=== PATIENT | male | born 1955 | race Two or more races ===

== ENCOUNTER 2016-08-16 12:40 | Inpatient (IN) | payer MEDICARE, OTHER ==
[~2016-08-16] VITALS: Ht 185.4 cm; Wt 99.3 kg
[2016-08-16] VITALS (17 sets, daily range): BP systolic 77–126; BP diastolic 41–73
[2016-08-16] MEDS ORDERED: Glucagon 1mg Inj IV ONE (13:30)
[2016-08-16 13:40] LABS: BASOPHILS % (AUTO) 0.6 % (0.0-2.0); EOSINOPHILS % (AUTO) 1.2 % (0.0-3.0); MEAN CORPUSCULAR HEMOGLOBIN 31.8 PG (27.0-31.0); MEAN CORPUSCULAR HGB CONC 33.2 G/DL (32.0-36.0); MEAN CORPUSCULAR VOLUME 96 FL (80-99); MEAN PLATELET VOLUME 7.4 FL (6.5-10.1); MONOCYTES % (AUTO) 5.6 % (1.0-10.0); NEUTROPHILS % (AUTO) 72.5 % (45.0-75.0); PLATELET COUNT 199 K/UL (150-450); RED BLOOD COUNT 3.37 M/UL (4.70-6.10); RED CELL DISTRIBUTION WIDTH 14.1 % (11.6-14.8); WHITE BLOOD COUNT 9.9 K/UL (4.8-10.8)
[2016-08-16 13:53] LABS: TROPONIN I < 0.30 ng/mL (<=0.30)
[2016-08-16 13:54] LABS: ALBUMIN/GLOBULIN RATIO 1.1 (1.0-2.7); CALCIUM 9.3 mg/dL (8.6-10.2); CREATININE 6.3 mg/dL (0.7-1.2); GLOMERULAR FILTRATION RATE 9.1 mL/min (>60); POTASSIUM 4.6 mEQ/L (3.4-4.9); TOTAL PROTEIN 6.8 g/dL (6.6-8.7)
[2016-08-16 13:59] LABS: INR 0.9 (0.9-1.1); PROTHROMBIN TIME 9.6 SEC (9.30-11.50)
[2016-08-16 14:05] LABS: CKMB 2.8 ng/mL (< 6.7)
[2016-08-16] MEDS ORDERED: Heparin 2000 units/Ns 1000ml IV ONE (14:15)
[2016-08-16] MEDS ORDERED: Lidocaine 1% Plain 30 ml INJ ONE (14:15)
[2016-08-16] MEDS ORDERED: DuoNeb 0.5-3(2.5)mg/3ml neb HHN PRN (14:30)
[2016-08-16] MEDS ORDERED: Nitroglycerin Subl 0.4mg tab (Bottle Of 25) SL PRN (14:30)
[2016-08-16] MEDS ORDERED: Miralax 17gm pkt ORAL PRN (14:30)
[2016-08-16] MEDS: DOPamine 400mg/250ml 250 ML IV SCH (14:55)
--- NOTE | 2016-08-16 15:40 | Emergency Room Report ---
History of Present Illness General Chief Complaint: General Complaint Source: Medical Record Present Illness HPI Patient is a 61-year-old male brought in by ambulance after increased dizziness lightheadedness. Patient had been seen at his oncologist office Dr. Oliver. Patient was noted to have markedly hypotension. He had not taken his blood pressure medication since yesterday. The medications include metoprolol hydrochlorothiazide,Patient was noted to have been given a liter of IV fluid by prior to arrival. The patient was given additional IV fluids by paramedics the continued hypotension. The patient had prior history of prostate disease and prostate cancer which was widely metastatic and had been doing well with current therapy. Allergies: Coded Allergies: No Known Allergies (Unverified , 08/16/16) Patient History Reviewed Nursing Documentation: PMH: Agreed, PSxH: Agreed Nursing Documentation-PMH Past Medical History: No History, Except For Hx Hypertension: Yes Hx Cancer: Yes - prostate Hx Gastrointestinal Problems: Yes - GERD History Of Psychiatric Problem: Yes - anxiety depression Review of Systems All Other Systems: negative except mentioned in HPI Physical Exam Vital Signs Date Time Temp Pulse Resp B/P Pulse Ox O2 Delivery O2 Flow Rate FiO2 08/16/16 12:42 97.2 55 14 79/49 100 Room Air Sp02 EP Interpretation: reviewed, normal General Appearance: normal inspection, alert, GCS 15, Chronically Ill Head: atraumatic ENT: normal ENT inspection, hearing grossly normal, normal voice Neck: normal inspection, full range of motion, supple, no bony tend Respiratory: normal inspection, lungs clear, normal breath sounds, no respiratory distress, no retraction, no wheezing Cardiovascular #1: regular rate, rhythm, no edema Gastrointestinal: normal inspection, normal bowel sounds, non tender, soft, no guarding, no hernia Genitourinary: no CVA tenderness Musculoskeletal: normal inspection, back normal, normal range of motion Neurologic: normal inspection, alert, oriented x3, responsive, mononitrotoluene operator III-XII nml as tested, speech normal Psychiatric: normal inspection, judgement/insight normal, mood/affect normal Skin: normal inspection, normal color, no rash Procedures Critical Care Time Critical Care Time Patient had a critical medical condition which untreated could potentially result in life or limb threatening injury. Total critical care time excluding procedures approximately 45 minutes. Medical Decision Making Diagnostic Impression: Primary Impression: Hypotension arterial Additional Impressions: Acute renal disease Prostate cancer metastatic to bone ER Course Patient presented for hypotension. Differential diagnosis included wasn't limited to septic shock pericardial effusion, pulmonary embolism, medication overdose, anaphylactic reaction. Because of complexity of patient's case laboratory testing and imaging studies were ordered.EKG interpreted by me showed normal sinus rhythm with a rate of 63 with prolonged QT QTC was [address] depression noted . The patient started on IV fluids as well as IV dopamine. I laboratory testing was notable for elevation of BUN/ creatinine consistent with acute renal failure. Patient states he's been urinating normallyDr. Tod Golden was contacted and requested the patient be admitted to Dr. Benson. A PICC line was placed by radiology for pressor management. Labs Test 08/16/16 13:00 White Blood Count 9.9 K/UL (4.8-10.8) Red Blood Count 3.37 M/UL (4.70-6.10) Hemoglobin 10.7 G/DL (14.2-18.0) Hematocrit 32.3 % (42.0-52.0) Mean Corpuscular Volume 96 FL (80-99) Mean Corpuscular Hemoglobin 31.8 PG (27.0-31.0) Mean Corpuscular Hemoglobin Concent 33.2 G/DL (32.0-36.0) Red Cell Distribution Width 14.1 % (11.6-14.8) Platelet Count 199 K/UL (150-450) Mean Platelet Volume 7.4 FL (6.5-10.1) Neutrophils (%) (Auto) 72.5 % (45.0-75.0) Lymphocytes (%) (Auto) 20.0 % (20.0-45.0) Monocytes (%) (Auto) 5.6 % (1.0-10.0) Eosinophils (%) (Auto) 1.2 % (0.0-3.0) Basophils (%) (Auto) 0.6 % (0.0-2.0) Prothrombin Time 9.6 SEC (9.30-11.50) Prothromb Time International Ratio 0.9 (0.9-1.1) Activated Partial Thromboplast Time 27 SEC (23-33) Sodium Level 132 mEQ/L (135-145) Potassium Level 4.6 mEQ/L (3.4-4.9) Chloride Level 89 mEQ/L (98-107) Carbon Dioxide Level 21 mEQ/L (20-30) Anion Gap 22 (5-15) Blood Urea Nitrogen 58 mg/dL (7-23) Creatinine 6.3 mg/dL (0.7-1.2) Estimat Glomerular Filtration Rate 9.1 mL/min (>60) Glucose Level 78 mg/dL (74-106) Lactic Acid Level 1.40 mmol/L (0.66-2.22) Calcium Level 9.3 mg/dL (8.6-10.2) Total Bilirubin 0.4 mg/dL (0.0-1.2) Aspartate Amino Transf (AST/SGOT) 16 U/L (5-40) Alanine Aminotransferase (ALT/SGPT) 5 U/L (3-41) Alkaline Phosphatase 216 U/L (40-129) Total Creatine Kinase 57 U/L (38-174) Creatine Kinase MB 2.8 ng/mL (< 6.7) Creatine Kinase MB Relative Index 4.9 Troponin I < 0.30 ng/mL (<=0.30) Pro-B-Type Natriuretic Peptide 1849 pg/mL (0-125) Total Protein 6.8 g/dL (6.6-8.7) Albumin 3.6 g/dL (3.5-5.2) Globulin 3.2 g/dL Albumin/Globulin Ratio 1.1 (1.0-2.7) Chest X-Ray Diagnostic Results EP Interpretation: No Findings: no effusion, no pneumothorax, no acute cardiopulmonary disease, other - 1st rib lesion Number of Views: 1 Last Vital Signs Date Time Temp Pulse Resp B/P Pulse Ox O2 Delivery O2 Flow Rate FiO2 08/16/16 14:57 97.2 68 18 83/59 100 Room Air Status: unchanged Disposition: ADMITTED INPATIENT Condition: Critical Referrals: KAREEN OLIVER (PCP) Jesu Wilcox Aug 16, 2016 15:40
[2016-08-16 15:47] LABS: APPEARANCE,URINE CLEAR; KETONES,URINE NEGATIVE (NEGATIVE); LEUKOCYTE ESTERASE ,URINE NEGATIVE (NEGATIVE); NITRITE,URINE NEGATIVE (NEGATIVE); PH,URINE 5 (4.5-8.0); PROTEIN,URINE 2+ (NEGATIVE); UROBILINOGEN,URINE NORMAL MG/DL (0.0-1.0)
[2016-08-16 15:56] LABS: SQUAMOUS EPITHELIAL CELL,UR FEW /LPF (NONE/OCC); WBC,URINE 0-2 /HPF (0 - 0)
[2016-08-16 15:57] LABS: BACTERIA,URINE FEW /HPF
--- NOTE | 2016-08-16 16:30 | Diagnostic Imaging Report ---
Indication: Chest pain Technique: One view of the chest Comparison: None Findings: There is any unusual expansile sclerotic lesion of the right first rib, expanding the bone to approximately twice its normal width. There is questionably some sclerosis of the right second rib, as well. The lungs and pleural spaces are clear. Heart size is normal. Impression: Expansile lesion of the right first rib with sclerosis. Equivocal slight sclerosis of the right second rib as well. Correlate with clinical history and any prior radiographs that may be available to help determine whether this is an old or an acute process. If not previously worked up, consider bone scan for further evaluation to determine if metabolically active. No acute cardiopulmonary process
[2016-08-16] MEDS ORDERED: PROCHLORPERAZINE5 MG ORAL (16:33)
[2016-08-16] MEDS ORDERED: OMEPRAZOLE40 M1 ORAL (16:33)
[2016-08-16] MEDS ORDERED: SERTRALINE HCL25 MG ORAL (16:33)
[2016-08-16] MEDS ORDERED: HYDROMORPHO2 MG/1 M3 IJ (16:33)
[2016-08-16] MEDS ORDERED: ZOFRAN4 M3 ORAL (16:33)
[2016-08-16] MEDS ORDERED: METOPROLOL TAR100 M1 ORAL (16:33)
[2016-08-16] MEDS ORDERED: LISINOPRIL20 MG ORAL (16:33)
[2016-08-16] MEDS ORDERED: LOSARTAN POTASS25 MG ORAL (16:33)
[2016-08-16] MEDS ORDERED: LORAZEPAM2 MG ORAL (16:33)
[2016-08-16] MEDS ORDERED: HYDROCHLOROTHIA25 MG ORAL (16:33)
[2016-08-16] MEDS ORDERED: ZOLPIDEM TARTRA10 MG ORAL (16:33)
[2016-08-16] MEDS: D5 1/2NS 1,000 ML IV SCH ×2 (18:41→18:48)
[2016-08-16] MEDS: Morphine Sulfate 4mg/ml Inj IVP PRN (18:56)
[2016-08-16] MEDS: LORazepam Inj 2mg/ml 1ml IV PRN (19:55)
[2016-08-16] MEDS: Heparin 5000 units/ml inj SUBQ SCH (21:48)
[2016-08-17] VITALS (83 sets, daily range): BP systolic 57–129; BP diastolic 40–83
[2016-08-17] MEDS: DOPamine 400mg/250ml 250 ML IV SCH ×2 (05:15→20:30)
[2016-08-17 06:14] LABS: BASOPHILS % (AUTO) 0.6 % (0.0-2.0); EOSINOPHILS % (AUTO) 0.9 % (0.0-3.0); LYMPHOCYTES % (AUTO) 26.2 % (20.0-45.0); MEAN CORPUSCULAR HEMOGLOBIN 32.6 PG (27.0-31.0); MEAN CORPUSCULAR HGB CONC 34.1 G/DL (32.0-36.0); MEAN CORPUSCULAR VOLUME 96 FL (80-99); MEAN PLATELET VOLUME 7.2 FL (6.5-10.1); MONOCYTES % (AUTO) 4.9 % (1.0-10.0); NEUTROPHILS % (AUTO) 67.5 % (45.0-75.0); PLATELET COUNT 221 K/UL (150-450); RED BLOOD COUNT 3.29 M/UL (4.70-6.10); RED CELL DISTRIBUTION WIDTH 13.6 % (11.6-14.8); WHITE BLOOD COUNT 8.9 K/UL (4.8-10.8)
[2016-08-17 06:28] LABS: BILIRUBIN,DIRECT 0.1 mg/dL (0.1-0.3); PHOSPHORUS 6.8 mg/dL (2.5-4.8); TOTAL PROTEIN 6.6 g/dL (6.6-8.7)
[2016-08-17 06:37] LABS: PROTHROMBIN TIME 9.7 SEC (9.30-11.50)
[2016-08-17 07:40] LABS: CALCIUM 8.9 mg/dL (8.6-10.2); CREATININE 4.9 mg/dL (0.7-1.2); GLOMERULAR FILTRATION RATE 12.2 mL/min (>60); POTASSIUM 3.3 mEQ/L (3.4-4.9)
--- NOTE | 2016-08-17 07:59 | History and Physical ---
History of Present Illness General Date patient seen: Aug 17, 2016 Time patient seen: 07:45 Reason for Hospitalization: General Complaint Present Illness HPI 61-year-old male with history of prostate Ca, was brought in by ambulance after increased dizziness and lightheadedness. Patient had been seen at his oncologist office Dr. Oliver. Patient was noted to have significant hypotension. He had not taken his blood pressure medication x 1 day Patient was given a liter of IV fluid by prior to arrival. The patient was given additional IV fluids by paramedics Hypotension persisted ED workup revealed acute renal failure, creat up to 6.3 mild anemia no leukocytosis, no fever CXR with evidence of lytic lesion Ist R rib patient required to be started on pressors and transferred to ICU for further management Allergies: Coded Allergies: No Known Allergies (Unverified , 08/16/16) Medication History Scheduled Hydrochlorothiazide* (Hydrochlorothiazide*), 25 MG ORAL DAILY, (Reported) Lisinopril (Lisinopril*), 20 MG ORAL DAILY, (Reported) Lorazepam* (Lorazepam*), 2 MG ORAL THREE TIMES A DAY, (Reported) Losartan Potassium* (Losartan Potassium*), 25 MG ORAL DAILY, (Reported) Metoprolol Tartrate* (Metoprolol Tartrate*), 100 MG ORAL EVERY 12 HOURS, ( Reported) Omeprazole (Omeprazole), 40 MG ORAL DAILY, (Reported) Prochlorperazine Maleate* (Compazine*), 10 MG ORAL Q6H, (Reported) Sertraline Hcl* (Sertraline Hcl*), 25 MG ORAL DAILY, (Reported) Scheduled PRN Ondansetron* (Zofran*), 4 MG ORAL Q6H PRN for Nausea & Vomiting, (Reported) Zolpidem Tartrate* (Zolpidem Tartrate*), 10 MG ORAL BEDTIME PRN for Insomnia, ( Reported) Miscellaneous Medications Hydromorphone Hcl (Hydromorphone Hcl), 2 MG IJ, (Reported) Patient History History Provided By: Patient Healthcare decision maker N Resuscitation status Full Code Advanced Directive on File Past Medical/Surgical History Past Medical/Surgical History: (1) Prostate cancer metastatic to bone (2) Afib (3) GERD (gastroesophageal reflux disease) (4) HTN (hypertension) (5) COPD (chronic obstructive pulmonary disease) (6) History of CVA (cerebrovascular accident) Review of Systems Constitutional: Reports: weakness Eye: Reports: no symptoms ENT: Reports: no symptoms Respiratory: Reports: other - COPD Cardiovascular: Reports: other - HTN, PAF Gastrointestinal: Reports: no symptoms Genitourinary: Reports: see HPI Musculoskeletal: Reports: other - Left side weakness Skin: Reports: no symptoms Psychiatric: Reports: anxiety, depressed feelings Neurological: Reports: other - 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 Endocrine: Reports: no symptoms Hematologic/Lymphatic: Reports: no symptoms Physical Exam General Appearance: WD/WN, alert Lines, tubes and drains: PICC HEENT: normocephalic, atraumatic, anicteric, mucous membranes moist, PERRL Neck: non-tender, supple Respiratory/Chest: lungs clear, no respiratory distress, no accessory muscle use Cardiovascular/Chest: normal peripheral pulses, normal rate, regular rhythm Abdomen: normal bowel sounds, non tender, soft Extremities: normal range of motion, non-tender, no calf tenderness Skin Exam: warm/dry Neurologic: alert, oriented x 3, responsive, other - L side weakness Musculoskeletal: normal muscle bulk Last 24 Hour Vital Signs Date Time Temp Pulse Resp B/P Pulse Ox O2 Delivery O2 Flow Rate FiO2 08/17/16 07:00 69 12 117/70 100 Room Air 08/17/16 06:45 69 13 113/73 98 Room Air 08/17/16 06:30 76 13 114/71 100 Room Air 08/17/16 06:15 73 13 110/67 100 Room Air 08/17/16 06:00 57 13 110/63 96 Room Air 08/17/16 05:45 59 12 104/60 96 Room Air 08/17/16 05:30 55 12 100/61 100 Room Air 08/17/16 05:15 53 13 86/52 99 Room Air 08/17/16 05:15 64/41 08/17/16 05:00 63 13 62/40 100 Room Air 08/17/16 04:45 61 13 103/61 99 Room Air 08/17/16 04:30 64 12 78/47 100 Room Air 08/17/16 04:15 61 12 104/63 99 Room Air 08/17/16 04:00 97.6 61 12 107/69 99 Room Air 08/17/16 04:00 73 08/17/16 03:45 64 14 112/69 100 Room Air 08/17/16 03:30 69 18 113/67 99 Room Air 08/17/16 03:15 71 17 109/63 98 Room Air 08/17/16 03:00 66 17 112/67 95 Room Air 08/17/16 02:45 62 13 106/65 98 Room Air 08/17/16 02:30 57 13 89/57 98 Room Air 08/17/16 02:15 59 14 88/76 97 Room Air 08/17/16 02:00 60 13 92/56 95 Room Air 08/17/16 01:00 65 13 92/67 95 Room Air 08/17/16 00:00 98.1 68 15 99/61 96 Room Air 08/17/16 00:00 69 08/16/16 23:45 65 13 92/67 95 Room Air 08/16/16 23:30 65 14 92/67 98 Room Air 08/16/16 23:15 67 14 94/59 96 Room Air 08/16/16 23:00 66 14 94/59 96 Room Air 08/16/16 23:00 94/59 08/16/16 22:00 96/63 08/16/16 22:00 73 17 96/63 95 Room Air 08/16/16 21:00 71 15 102/65 95 Room Air 08/16/16 21:00 102/65 08/16/16 20:00 97.6 75 15 116/64 94 Room Air 08/16/16 20:00 116/64 08/16/16 19:00 117/69 08/16/16 19:00 71 21 117/69 100 Room Air 08/16/16 18:00 70 23 112/68 100 Room Air 08/16/16 18:00 112/68 08/16/16 17:24 97.1 91 23 116/59 100 Room Air 08/16/16 17:15 87 08/16/16 17:02 97.8 91 16 121/73 100 Room Air 08/16/16 17:01 97.8 91 16 121/73 100 Room Air 08/16/16 17:00 116/59 08/16/16 16:30 97.2 80 20 123/63 100 Room Air 08/16/16 16:29 123/63 08/16/16 15:33 126/68 08/16/16 15:31 97.6 63 16 126/68 100 Room Air 08/16/16 14:57 97.2 68 18 83/59 100 Room Air 08/16/16 14:55 68/44 08/16/16 14:30 97.2 68 18 80/53 100 Room Air 08/16/16 13:32 68 18 87/48 100 Room Air 08/16/16 13:13 97.2 57 18 77/41 100 Room Air 08/16/16 12:42 97.2 55 14 79/49 100 Room Air Intake and Output 08/16/16 08/17/16 19:00 07:00 Intake Total 1055.95 ml 1121.608 ml Output Total 700 ml 1165 ml Balance 355.95 ml -43.392 ml Intake IV Total 55.95 ml 1121.608 ml Other 1000 ml Output Urine Total 700 ml 1165 ml # Voids 1 Laboratory Tests Test 08/16/16 13:00 08/16/16 15:35 08/17/16 04:40 White Blood Count 9.9 K/UL (4.8-10.8) 8.9 K/UL (4.8-10.8) Red Blood Count 3.37 M/UL (4.70-6.10) L 3.29 M/UL (4.70-6.10) L Hemoglobin 10.7 G/DL (14.2-18.0) L 10.7 G/DL (14.2-18.0) L Hematocrit 32.3 % (42.0-52.0) L 31.5 % (42.0-52.0) L Mean Corpuscular Volume 96 FL (80-99) 96 FL (80-99) Mean Corpuscular Hemoglobin 31.8 PG (27.0-31.0) H 32.6 PG (27.0-31.0) H Mean Corpuscular Hemoglobin Concent 33.2 G/DL (32.0-36.0) 34.1 G/DL (32.0-36.0) Red Cell Distribution Width 14.1 % (11.6-14.8) 13.6 % (11.6-14.8) Platelet Count 199 K/UL (150-450) 221 K/UL (150-450) Mean Platelet Volume 7.4 FL (6.5-10.1) 7.2 FL (6.5-10.1) Neutrophils (%) (Auto) 72.5 % (45.0-75.0) 67.5 % (45.0-75.0) Lymphocytes (%) (Auto) 20.0 % (20.0-45.0) 26.2 % (20.0-45.0) Monocytes (%) (Auto) 5.6 % (1.0-10.0) 4.9 % (1.0-10.0) Eosinophils (%) (Auto) 1.2 % (0.0-3.0) 0.9 % (0.0-3.0) Basophils (%) (Auto) 0.6 % (0.0-2.0) 0.6 % (0.0-2.0) Prothrombin Time 9.6 SEC (9.30-11.50) 9.7 SEC (9.30-11.50) Prothromb Time International Ratio 0.9 (0.9-1.1) 1.0 (0.9-1.1) Activated Partial Thromboplast Time 27 SEC (23-33) 33 SEC (23-33) Sodium Level 132 mEQ/L (135-145) L 136 mEQ/L (135-145) Potassium Level 4.6 mEQ/L (3.4-4.9) 3.3 mEQ/L (3.4-4.9) L Chloride Level 89 mEQ/L (98-107) L 93 mEQ/L (98-107) L Carbon Dioxide Level 21 mEQ/L (20-30) 20 mEQ/L (20-30) Anion Gap 22 (5-15) H 23 (5-15) H Blood Urea Nitrogen 58 mg/dL (7-23) H 52 mg/dL (7-23) H Creatinine 6.3 mg/dL (0.7-1.2) H 4.9 mg/dL (0.7-1.2) H Estimat Glomerular Filtration Rate 9.1 mL/min (>60) 12.2 mL/min (>60) Glucose Level 78 mg/dL (74-106) 99 mg/dL (74-106) Lactic Acid Level 1.40 mmol/L (0.66-2.22) Calcium Level 9.3 mg/dL (8.6-10.2) 8.9 mg/dL (8.6-10.2) Total Bilirubin 0.4 mg/dL (0.0-1.2) 0.3 mg/dL (0.0-1.2) Aspartate Amino Transf (AST/SGOT) 16 U/L (5-40) 10 U/L (5-40) Alanine Aminotransferase (ALT/SGPT) 5 U/L (3-41) 5 U/L (3-41) Alkaline Phosphatase 216 U/L (40-129) H 217 U/L (40-129) H Total Creatine Kinase 57 U/L (38-174) Creatine Kinase MB 2.8 ng/mL (< 6.7) Creatine Kinase MB Relative Index 4.9 Troponin I < 0.30 ng/mL (<=0.30) Pro-B-Type Natriuretic Peptide 1849 pg/mL (0-125) H Total Protein 6.8 g/dL (6.6-8.7) 6.6 g/dL (6.6-8.7) Albumin 3.6 g/dL (3.5-5.2) 3.5 g/dL (3.5-5.2) Globulin 3.2 g/dL Albumin/Globulin Ratio 1.1 (1.0-2.7) Urine Color Pale yellow Urine Appearance Clear Urine pH 5 (4.5-8.0) Urine Specific [place] 1.010 (1.005-1.035) Urine Protein 2+ (NEGATIVE) H Urine Glucose (UA) Negative (NEGATIVE) Urine Ketones Negative (NEGATIVE) Urine Occult Blood 1+ (NEGATIVE) H Urine Nitrite Negative (NEGATIVE) Urine Bilirubin Negative (NEGATIVE) Urine Urobilinogen Normal MG/DL (0.0-1.0) Urine Leukocyte Esterase Negative (NEGATIVE) Urine RBC 2-4 /HPF (0 - 0) H Urine WBC 0-2 /HPF (0 - 0) Urine Squamous Epithelial Cells Few /LPF (NONE/OCC) Urine Bacteria Few /HPF (NONE) Phosphorus Level 6.8 mg/dL (2.5-4.8) H Direct Bilirubin 0.1 mg/dL (0.1-0.3) Lactate Dehydrogenase 109 U/L (135-230) L Height (Feet): 6 Height (Inches): 1.00 Weight (Pounds): 219 Medications Current Medications Medications (Trade) Dose Ordered Sig/Yenny Route PRN Reason Start Time Stop Time Status Last Admin Dose Admin Acetaminophen (Tylenol) 650 mg Q4H PRN ORAL Fever 08/16/16 14:30 09/15/16 14:29 Albuterol/ Ipratropium (DuoNeb 0.5-3(2.5)mg/3ml) 3 ml EVERY 4 HOURS PRN HHN Shortness of Breath 08/16/16 14:30 08/21/16 14:29 Dextrose (Dextrose 50%) STAT PRN IV Hypoglycemia 08/16/16 14:30 09/15/16 14:29 Dextrose/Sodium Chloride (D5 0.45% NS) 1,000 ml @ 75 mls/hr [id number] IV 08/16/16 18:13 09/15/16 18:12 08/16/16 18:48 Dopamine HCl/ Dextrose 250 ml @ 0 mls/hr Q24H IV 08/16/16 13:30 09/15/16 13:29 08/17/16 05:15 Heparin Sodium (Porcine) (Heparin 5000 units/ml) 5,000 units EVERY 12 HOURS SUBQ 08/16/16 21:00 09/15/16 20:59 08/16/16 21:48 Lorazepam (Ativan 2mg/ml 1ml) 2 mg EVERY 2 HOURS PRN IV agitation 08/16/16 14:30 08/23/16 14:29 08/16/16 19:55 Morphine Sulfate (Morphine Sulfate) 4 mg EVERY 4 HOURS PRN IVP Severe Pain (Pain Scale 7-10) 08/16/16 14:30 08/23/16 14:29 08/16/16 18:56 Nitroglycerin (Ntg) 0.4 mg Q5M PRN SL Prn Chest Pain 08/16/16 14:30 09/15/16 14:29 Ondansetron HCl (Zofran) 4 mg Q6H PRN IVP Nausea & Vomiting 08/16/16 14:30 09/15/16 14:29 Pantoprazole (Protonix) 40 mg EVERY 12 HOURS IVP 08/17/16 09:00 09/16/16 08:59 Polyethylene Glycol (Miralax) 17 gm DAILYPRN PRN ORAL Constipation 08/16/16 14:30 09/15/16 14:29 Assessment/Plan Assessment/Plan ASSESSMENT shock hypotension metastatic prostate Ca with mets to bone acute renal failure anemia Hx of HTN hypokalemia COPD GERD PAF anorexia elevated pro BNP PLAN O FCARE ICU pressors, try to wean IVF monitor renal parameters, lytes creat trending down nephro follows renal US pending etiology multifactorial ? obstruction 2 to prostate Ca, ? medications SE( PIERRE , diuretics), dehydration? not eating well, replace K check K and Mg in am O2 HHN prn ECHO Venous Duplex BLE ID follows keep off abx for now fup with blood cx DVT, GI prophylaxis Bowel regimen add appetite stimulant - Periactin monitor HH, workup if trending down case discussed and evaluated by supervising physician Marty ([email or web address]),Lisa PASCUAL Aug 17, 2016 07:58
--- NOTE | 2016-08-17 08:04 | Consultation ---
Consult Note Consult Note ID CONSULT: Dict# [id number] Assessment/Plan ASSESSMENT: 61 y/o male with: // Shock SP - weaned off pressor r/o septic - trop(-) x1, UA(-), CXR NAF, BCx, TTE pending, no localizing s/sx infection // Afebrile without leukocytosis // ARF - improved // Metastatic prostate CA, on chemo // NKDA // Full Code PLAN: - monitor pt off of ABX for now - check renal US, ddimer - f/u BCx - f/u TTE, doppler - monitor CBC, temperatures - monitor BMP - pressors prn Thanks! Will follow SIMONA GUPTA Aug 17, 2016 08:04
[2016-08-17] MEDS: Heparin 5000 units/ml inj SUBQ SCH ×2 (08:18→20:28)
[2016-08-17] MEDS: D5 1/2NS 1,000 ML IV SCH (08:19)
[2016-08-17] MEDS ORDERED: NS 250 ML IVPB ONE (08:30)
[2016-08-17] MEDS: Morphine Sulfate 4mg/ml Inj IVP PRN (08:31)
--- NOTE | 2016-08-17 08:56 | Consultation ---
Consult Note Consult Note asked to eval for renal failure Patient is a 61-year-old male brought in by ambulance after increased dizziness lightheadedness. Patient had been seen at his oncologist office Dr. Oliver. Patient was noted to have markedly hypotension. He had not taken his blood pressure medication since yesterday. The medications include metoprolol hydrochlorothiazide,Patient was noted to have been given a liter of IV fluid by prior to arrival. The patient was given additional IV fluids by paramedics the continued hypotension. The patient had prior history of prostate disease and prostate cancer which was widely metastatic and had been doing well with current therapy. Past Medical History: No History, Except For Hx Hypertension: Yes Hx Cancer: Yes - prostate Hx Gastrointestinal Problems: Yes - GERD History Of Psychiatric Problem: Yes - anxiety depression Assessment/Plan status: Acute Renal Failure ( Zestril , HCTZ , ? Obstruction.....Hypotension h/o Prostate Ca with bone mets Plan: IV fluid- diaz Monitor renal parameters pressors avoid nephrotoxics kidney GIACOMO per orders YRIS VALDEZ Aug 17, 2016 08:56
[2016-08-17] MEDS: D5NS 1,000 ML IV SCH ×2 (09:00→17:54)
[2016-08-17] MEDS ORDERED: Pantoprazole Inj IVP SCH (09:00)
[2016-08-17 11:51] LABS: CHOLESTEROL/HDL RATIO 3.8 (3.3-4.4)
--- NOTE | 2016-08-17 12:25 | Diagnostic Imaging Report ---
Indication: Abnormal breath sounds Comparison: 08/16/16 A single view chest radiograph was obtained. Findings: There is a PICC line present which is in good position with the tip in the SVC. The lungs are clear. Borderline cardiomegaly is present. Aorta is mildly enlarged. Abnormal expansile sclerotic right first rib noted once again. Impression: No acute cardiopulmonary abnormalities. Her graft PICC line in good position. Abnormal right first rib. Suspect Paget's disease although there is a differential diagnosis.
[2016-08-17] MEDS ORDERED: Cyproheptadine HCl 4mg tab ORAL SCH (13:00)
--- NOTE | 2016-08-17 14:48 | Consultation ---
DATE OF CONSULTATION: 08/17/2016 INFECTIOUS DISEASE CONSULTATION: CONSULTING PHYSICIAN: Hector Green M.D. REQUESTING PHYSICIAN: Eric Benson M.D. REASON FOR CONSULTATION: Hypotension. HISTORY OF PRESENT ILLNESS: This is a 61-year-old male with history of hypertension and metastatic prostate cancer, admitted on 08/16/2016 with asymptomatic hypotension. The patient reports poor oral intake and he did take antihypertensive prior to admission without previously checking his blood pressure. Also evidence of acute renal failure with creatinine of 6.3, improved to 4.9 this morning. He is afebrile without leukocytosis. He has been weaned off of pressors this morning. Troponin is negative x1. Lactic acid is within normal limits. Urinalysis is negative. Chest x-ray shows no acute findings. Blood culture and echocardiogram are pending. He has no localizing signs or symptoms of infection. He has not yet been started on antibiotics and ID now consulted to assist in management. PAST MEDICAL HISTORY: 1. Metastatic prostate cancer, on chemotherapy. 2. GERD. 3. Anxiety and depression. 4. Hypertension. FAMILY HISTORY: Noncontributory. SOCIAL HISTORY: The patient lives locally. No active tobacco, alcohol, or illicit drug abuse. ALLERGIES: No known drug allergies. MEDICATIONS: 1. No antibiotics. 2. Status post dopamine drip. 3. Protonix. 4. Subcutaneous heparin. REVIEW OF SYSTEMS: As per history of present illness. Ten systems reviewed. All pertinent positives and negatives noted. PHYSICAL EXAMINATION: VITAL SIGNS: Maximum temperature 98.1, blood pressure 117/70, heart rate in the 60s, respiratory rate 12, and saturating 100% on room air. GENERAL: No apparent distress. Nontoxic appearing. CARDIOVASCULAR: Regular rate and rhythm. No murmurs. PULMONARY: Clear to auscultation bilaterally. ABDOMEN: Bowel sounds present. Soft, nondistended, and nontender. Guthrie catheter in place with clear yellow urine. EXTREMITIES: No edema. LABORATORY DATA: White blood cell count 8.9 with normal differential, hemoglobin 10.7, platelets 221,000. Sodium 136, potassium 3.3, chloride 93, bicarbonate 20, BUN 52, and creatinine 4.9 decreased from 6.3. INR 1. AST 10, ALT 5, alkaline phosphatase 217, total bilirubin 0.3, albumin 3.5. Troponin negative x1. Lactic acid 1.4. Urinalysis negative. MICROBIOLOGY: From 08/16/2016, blood culture pending. IMAGIN. On 08/16/2016, chest x-ray, no acute findings. 2. On 08/16/2016, bilateral lower extremity Doppler ultrasound pending. 3. On 08/16/2016, echocardiogram pending. ASSESSMENT: 1. Status post shock, now weaned off of pressors, rule out septic. Troponin is negative x1. Urinalysis is negative. Chest x-ray shows no acute findings. Blood culture and echocardiogram are pending and the patient has no localizing signs or symptoms of infection. 2. Afebrile without leukocytosis. 3. Acute renal failure, improved. Renal evaluation is pending. 4. Metastatic prostate cancer, on chemotherapy. 5. No known drug allergies. 6. Full code. PLAN: 1. Monitor the patient off of antibiotics for now. 2. Check renal ultrasound. 3. Follow up blood cultures. 4. Follow up echocardiogram and Doppler. 5. Monitor CBC and temperatures. 6. Monitor BMP. 7. Pressor support as needed. Thank you. We will follow. Hector Green M.D. DR: Primo JOB#: [id number] CC: Eric Benson M.D.; Fax#: [phone] Osullivan M.D; Fax#: [phone]
[2016-08-17] MEDS: Cyproheptadine HCl 4mg tab ORAL SCH ×2 (14:59→17:54)
[2016-08-17] MEDS ORDERED: NS 550ML IV ONE (16:15)
[2016-08-17] MEDS ORDERED: NS 275ml ONE (16:15)
[2016-08-17] MEDS ORDERED: Tubing IV Secondary IV ONE (16:15)
[2016-08-17] MEDS ORDERED: D5 1/2NS 1000ml IV ONE (16:15)
--- NOTE | 2016-08-17 17:10 | Cardiology Progress Note ---
Subjective Subjective [id number] Objective Last 24 Hour Vital Signs Date Time Temp Pulse Resp B/P Pulse Ox O2 Delivery O2 Flow Rate FiO2 08/17/16 16:45 60 15 81/49 98 Room Air 08/17/16 16:30 62 14 80/61 100 Room Air 08/17/16 16:15 62 14 86/61 100 Room Air 08/17/16 16:00 72 08/17/16 16:00 71 16 88/56 100 Room Air 08/17/16 15:45 69 14 87/57 99 Room Air 08/17/16 15:30 65 14 93/70 100 Room Air 08/17/16 15:15 97.5 70 15 112/79 100 Room Air 08/17/16 15:00 85 14 121/61 100 Room Air 08/17/16 14:45 70 14 115/60 100 Room Air 08/17/16 14:30 72 12 121/80 100 Room Air 08/17/16 14:15 66 12 121/74 99 Room Air 08/17/16 14:00 65 12 119/77 98 Room Air 08/17/16 13:45 65 12 120/64 98 Room Air 08/17/16 13:30 65 12 129/77 99 Room Air 08/17/16 13:15 65 12 125/77 98 Room Air 08/17/16 13:00 64 12 125/79 97 Room Air 08/17/16 12:45 63 12 128/72 96 Room Air 08/17/16 12:30 56 12 118/80 97 Room Air 08/17/16 12:15 70 12 61/40 98 Room Air 08/17/16 12:00 74 12 118/80 97 Room Air 08/17/16 12:00 97.8 08/17/16 12:00 80 08/17/16 11:45 74 12 108/73 96 Room Air 08/17/16 11:30 75 12 101/83 94 Room Air 08/17/16 11:15 68 12 118/71 96 Room Air 08/17/16 11:00 63 12 113/69 97 Room Air 08/17/16 10:45 63 12 112/65 96 Room Air 08/17/16 10:30 58 12 113/66 96 Room Air 08/17/16 10:15 55 12 99/59 98 Room Air 08/17/16 10:00 58 12 87/58 99 Room Air 08/17/16 09:45 60 12 88/50 99 Room Air 08/17/16 09:30 64 12 116/59 99 Room Air 08/17/16 09:15 67 12 108/57 99 Room Air 08/17/16 09:00 62 12 104/63 99 Room Air 08/17/16 08:45 62 12 102/64 97 Room Air 08/17/16 08:30 55 12 86/58 99 Room Air 08/17/16 08:15 65 12 57/47 99 Room Air 08/17/16 08:00 78 12 108/69 99 Room Air 08/17/16 08:00 96.8 08/17/16 08:00 78 08/17/16 07:45 60 12 105/67 99 Room Air 08/17/16 07:30 65 12 104/67 99 Room Air 08/17/16 07:15 68 12 116/76 99 Room Air 08/17/16 07:00 69 12 117/70 100 Room Air 08/17/16 06:45 69 13 113/73 98 Room Air 08/17/16 06:30 76 13 114/71 100 Room Air 08/17/16 06:15 73 13 110/67 100 Room Air 08/17/16 06:00 57 13 110/63 96 Room Air 08/17/16 05:45 59 12 104/60 96 Room Air 08/17/16 05:30 55 12 100/61 100 Room Air 08/17/16 05:15 53 13 86/52 99 Room Air 08/17/16 05:15 64/41 08/17/16 05:00 63 13 62/40 100 Room Air 08/17/16 04:45 61 13 103/61 99 Room Air 08/17/16 04:30 64 12 78/47 100 Room Air 08/17/16 04:15 61 12 104/63 99 Room Air 08/17/16 04:00 97.6 61 12 107/69 99 Room Air 08/17/16 04:00 73 08/17/16 03:45 64 14 112/69 100 Room Air 08/17/16 03:30 69 18 113/67 99 Room Air 08/17/16 03:15 71 17 109/63 98 Room Air 08/17/16 03:00 66 17 112/67 95 Room Air 08/17/16 02:45 62 13 106/65 98 Room Air 08/17/16 02:30 57 13 89/57 98 Room Air 08/17/16 02:15 59 14 88/76 97 Room Air 08/17/16 02:00 60 13 92/56 95 Room Air 08/17/16 01:00 65 13 92/67 95 Room Air 08/17/16 00:00 98.1 68 15 99/61 96 Room Air 08/17/16 00:00 69 08/16/16 23:45 65 13 92/67 95 Room Air 08/16/16 23:30 65 14 92/67 98 Room Air 08/16/16 23:15 67 14 94/59 96 Room Air 08/16/16 23:00 66 14 94/59 96 Room Air 08/16/16 23:00 94/59 08/16/16 22:00 96/63 08/16/16 22:00 73 17 96/63 95 Room Air 08/16/16 21:00 71 15 102/65 95 Room Air 08/16/16 21:00 102/65 08/16/16 20:00 97.6 75 15 116/64 94 Room Air 08/16/16 20:00 116/64 08/16/16 19:00 117/69 08/16/16 19:00 71 21 117/69 100 Room Air 08/16/16 18:00 70 23 112/68 100 Room Air 08/16/16 18:00 112/68 08/16/16 17:24 97.1 91 23 116/59 100 Room Air 08/16/16 17:15 87 Intake and Output 08/16/16 08/17/16 19:00 07:00 Intake Total 1055.95 ml 1121.608 ml Output Total 700 ml 1165 ml Balance 355.95 ml -43.392 ml IV Total 55.95 ml 1121.608 ml Other 1000 ml Output Urine Total 700 ml 1165 ml # Voids 1 Laboratory Tests Test 08/17/16 04:40 08/17/16 10:00 White Blood Count 8.9 K/UL (4.8-10.8) Red Blood Count 3.29 M/UL (4.70-6.10) L Hemoglobin 10.7 G/DL (14.2-18.0) L Hematocrit 31.5 % (42.0-52.0) L Mean Corpuscular Volume 96 FL (80-99) Mean Corpuscular Hemoglobin 32.6 PG (27.0-31.0) H Mean Corpuscular Hemoglobin Concent 34.1 G/DL (32.0-36.0) Red Cell Distribution Width 13.6 % (11.6-14.8) Platelet Count 221 K/UL (150-450) Mean Platelet Volume 7.2 FL (6.5-10.1) Neutrophils (%) (Auto) 67.5 % (45.0-75.0) Lymphocytes (%) (Auto) 26.2 % (20.0-45.0) Monocytes (%) (Auto) 4.9 % (1.0-10.0) Eosinophils (%) (Auto) 0.9 % (0.0-3.0) Basophils (%) (Auto) 0.6 % (0.0-2.0) Prothrombin Time 9.7 SEC (9.30-11.50) Prothromb Time International Ratio 1.0 (0.9-1.1) Activated Partial Thromboplast Time 33 SEC (23-33) Sodium Level 136 mEQ/L (135-145) Potassium Level 3.3 mEQ/L (3.4-4.9) L Chloride Level 93 mEQ/L (98-107) L Carbon Dioxide Level 20 mEQ/L (20-30) Anion Gap 23 (5-15) H Blood Urea Nitrogen 52 mg/dL (7-23) H Creatinine 4.9 mg/dL (0.7-1.2) H Estimat Glomerular Filtration Rate 12.2 mL/min (>60) Glucose Level 99 mg/dL (74-106) Calcium Level 8.9 mg/dL (8.6-10.2) Phosphorus Level 6.8 mg/dL (2.5-4.8) H Total Bilirubin 0.3 mg/dL (0.0-1.2) Direct Bilirubin 0.1 mg/dL (0.1-0.3) Aspartate Amino Transf (AST/SGOT) 10 U/L (5-40) Alanine Aminotransferase (ALT/SGPT) 5 U/L (3-41) Alkaline Phosphatase 217 U/L (40-129) H Lactate Dehydrogenase 109 U/L (135-230) L Total Protein 6.6 g/dL (6.6-8.7) Albumin 3.5 g/dL (3.5-5.2) Hemoglobin A1c 4.8 % (< 6.0) Uric Acid 10.7 mg/dL (3.0-7.5) H Magnesium Level 3.3 mg/dL (1.7-2.5) H Gamma Glutamyl Transpeptidase 10 U/L (8-61) Total Creatine Kinase 49 U/L (38-174) C-Reactive Protein, Quantitative 4.9 mg/dL (< 0.5) H Triglycerides Level 87 mg/dL (< 150) Cholesterol Level 202 mg/dL (< 200) H LDL Cholesterol 132 mg/dL (60-99) H HDL Cholesterol 53 mg/dL (> 60) Cholesterol/HDL Ratio 3.8 (3.3-4.4) Vitamin B12 Level 319 pg/mL (211-946) Thyroid Stimulating Hormone (TSH) 0.387 uIU/mL (0.300-4.500) Cortisol Pending ALCIRA HARO Aug 17, 2016 17:10
[2016-08-17] MEDS: LORazepam Inj 2mg/ml 1ml IV PRN (20:28)
--- NOTE | 2016-08-17 23:29 | Consultation ---
DATE OF CONSULTATION: 08/17/2016 CARDIOLOGY CONSULTATION PATIENT IDENTIFYING DATA: This is a 61-year-old male. REASON FOR ADMISSION: Hypotension. HISTORY OF PRESENT ILLNESS: History is taken from the gentleman himself who is a very pleasant, 61-year-old male. He said that he has blood pressure pills, which he usually does not take, checks his blood pressure and if it is less than 120 systolic, he does not take them, but for three or four days ago, he has checked his blood pressure was 140s, so he took all his blood pressure pills, hydrochlorothiazide, metoprolol and lisinopril and he was taking it every day for two days and then he went to see his oncologist, Dr. Oliver, who he sees just because of his prostate cancer and his blood pressure was 80/40. The patient was very symptomatic, barely could move around, was very sleepy and weak. He denies any chest pain, dyspnea, syncopal episode or fall and that is why he was admitted and was noted that his kidney function was compromised, probably due to hypotension and kidney hypoperfusion, however, there was no evidence of cardiac dysfunction. PAST MEDICAL HISTORY: Significant for GERD, prostate cancer, bone lesion, hypertension, apparently not very severe. Significant for in addition to the above depression. SURGICAL HISTORY: Prostate biopsy. ALLERGIES: Not reported. HABITS: He denies history of drinking, smoking or drug abuse. REVIEW OF SYSTEMS: As I mentioned, significant for severe weakness, dizziness, and sleepiness since he started taking blood pressure medications. He did not have nausea or vomiting. No fever. No abdominal pain. He is being treated by Dr. Oliver with chemotherapy and hydration for his prostate cancer. He also takes medications at home for depression, anxiety and GERD. His medication list was reviewed carefully. PHYSICAL EXAMINATION: GENERAL: The patient is a pleasant gentleman, does not appear to be in acute distress. VITAL SIGNS: Blood pressure 80/60, heart rate is 60, temperature is normal, oxygen saturation 100% on room air. HEENT: PERRLA. EOMI. NECK: Supple. There is no carotid bruit. No neck vein distention. LUNGS: Few crackles at bases. HEART: Regular. Slightly accented A2. S1 is normal. PMI is in the sixth intercostal space in midclavicular line. ABDOMEN: Soft and nontender. EXTREMITIES: Lower extremities, no edema. Distal pulses palpable. NEUROLOGIC: He is intact. LABORATORY AND DIAGNOSTIC DATA: His EKG shows right bundle-branch block, sinus rhythm. Chest x-ray is unremarkable, but there is possibly some bone lesions. His laboratories were all reviewed. Troponin was normal and essentially abnormal with numbers for creatinine from 6.3 went down to 4.9 and phosphorus was elevated. His echo was done and reviewed and it showed normal left ventricular function. His chest x-ray also was reviewed. IMPRESSION AND RECOMMENDATION: Hypertension, iatrogenic due to overdose of blood pressure medications with end-organ damage including kidney with acute renal failure, however, there is no evidence of cardiac damage thank fully and he is on appropriate management off antihypertensives and on intravenous hydration. I do not have any significant suggestion to add to his medical regimen and hopefully he will recover within next 24 to 48 hours. This is a intensive care unit level of care and one hour spent. Thank you. Diana Vaughan M.D. DR: DONG JOB#: [id number] CC:
[2016-08-18] VITALS (56 sets, daily range): BP systolic 67–140; BP diastolic 45–75
[2016-08-18 04:50] LABS: BASOPHILS % (AUTO) 0.8 % (0.0-2.0); EOSINOPHILS % (AUTO) 1.8 % (0.0-3.0); LYMPHOCYTES % (AUTO) 28.4 % (20.0-45.0); MEAN CORPUSCULAR HEMOGLOBIN 32.1 PG (27.0-31.0); MEAN CORPUSCULAR HGB CONC 33.1 G/DL (32.0-36.0); MEAN CORPUSCULAR VOLUME 97 FL (80-99); MEAN PLATELET VOLUME 6.7 FL (6.5-10.1); MONOCYTES % (AUTO) 4.6 % (1.0-10.0); NEUTROPHILS % (AUTO) 64.4 % (45.0-75.0); PLATELET COUNT 208 K/UL (150-450); RED BLOOD COUNT 3.08 M/UL (4.70-6.10); RED CELL DISTRIBUTION WIDTH 14.2 % (11.6-14.8); WHITE BLOOD COUNT 7.1 K/UL (4.8-10.8)
[2016-08-18 05:30] LABS: CALCIUM 8.6 mg/dL (8.6-10.2); CREATININE 3.4 mg/dL (0.7-1.2); GLOMERULAR FILTRATION RATE 18.6 mL/min (>60); MAGNESIUM 2.7 mg/dL (1.7-2.5); PHOSPHORUS 4.4 mg/dL (2.5-4.8); TOTAL PROTEIN 6.1 g/dL (6.6-8.7)
[2016-08-18] MEDS: D5NS 1,000 ML IV SCH ×3 (05:32→18:30)
[2016-08-18 06:29] LABS: POTASSIUM 3.3 mEQ/L (3.4-4.9)
--- NOTE | 2016-08-18 08:45 | Infectious Diseases Prog Note ---
Assessment/Plan Assessment/Plan ASSESSMENT: 61 y/o male with: // Shock / pressors ?iatrogenic r/o septic - trop(-) x1, UA(-), CXR NAF, BCx NGTD - TTE: EF 70-75%, grade I diastolic dysfunction, trace valvular disease // Afebrile without leukocytosis // ARF - improved // Metastatic prostate CA, on chemo // NKDA // Full Code PLAN: - monitor pt off of ABX for now - f/u BCx - monitor CBC, temperatures - monitor BMP - pressor support, wean as tolerated Subjective Allergies: Coded Allergies: No Known Allergies (Unverified , 08/16/16) Subjective remains afebrile. no new complaint back on low dose pressors Objective Vital Signs Last 24 Hour Vital Signs Date Time Temp Pulse Resp B/P Pulse Ox O2 Delivery O2 Flow Rate FiO2 08/18/16 08:00 54 08/18/16 07:00 60 12 85/56 98 Room Air 08/18/16 06:45 58 12 100/72 98 Room Air 08/18/16 06:30 58 12 116/68 97 Room Air 08/18/16 06:15 57 13 112/74 99 Room Air 08/18/16 06:00 58 13 113/64 99 Room Air 08/18/16 05:45 56 12 113/64 99 Room Air 08/18/16 05:30 56 12 103/63 100 Room Air 08/18/16 05:15 56 12 101/63 99 Room Air 08/18/16 05:00 57 12 105/60 99 Room Air 08/18/16 04:45 61 12 107/63 99 Room Air 08/18/16 04:30 97.1 59 12 107/71 99 Room Air 08/18/16 04:15 60 12 93/75 99 Room Air 08/18/16 04:00 59 13 98/61 99 Room Air 08/18/16 04:00 59 08/18/16 03:45 60 13 94/62 99 Room Air 08/18/16 03:30 61 15 104/65 99 Room Air 08/18/16 03:15 60 16 112/69 99 Room Air 08/18/16 03:00 59 17 104/70 99 Room Air 08/18/16 02:45 61 17 102/62 98 Room Air 08/18/16 02:30 61 15 100/67 98 Room Air 08/18/16 02:15 58 14 100/67 97 Room Air 08/18/16 02:00 60 16 89/60 96 Room Air 08/18/16 01:45 60 15 97/65 97 Room Air 08/18/16 01:30 59 13 109/74 98 Room Air 08/18/16 01:15 62 16 97/64 96 Room Air 08/18/16 01:00 61 14 97/64 98 Room Air 08/18/16 00:45 62 14 100/61 99 Room Air 08/18/16 00:30 62 15 101/64 98 Room Air 08/18/16 00:15 62 15 95/62 98 Room Air 08/18/16 00:00 59 08/18/16 00:00 97.1 60 14 98/66 98 Room Air 08/17/16 23:00 63 14 102/56 99 Room Air 08/17/16 22:45 59 18 102/59 97 Room Air 08/17/16 22:30 57 16 95/61 100 Room Air 17 22:15 61 14 90/58 100 Room Air 17 22:00 60 16 96/58 100 Room Air 1817 20:45 71 14 91/53 100 Room Air 17 20:30 73 14 90/59 100 Room Air 1817 20:30 93/58 18/17 20:15 97.1 61 16 93/58 98 Room Air 17 20:00 54 17 20:00 56 14 90/53 98 Room Air 17 19:45 57 14 92/53 98 Room Air 18/17 19:30 60 15 106/68 100 Room Air 18/17 19:15 66 15 111/67 98 Room Air 18/17 19:00 60 15 106/67 100 Room Air 18/17 18:45 66 15 104/65 98 Room Air 318/17 18:30 66 15 85/47 98 Room Air 318/17 18:15 52 14 87/49 99 Room Air 318/17 18:00 56 14 78/40 99 Room Air 318/17 17:45 58 14 73/40 99 Room Air 318/17 17:30 57 15 72/40 100 Room Air 08/17/16 17:15 60 15 84/52 100 Room Air 08/17/16 17:00 61 15 82/51 98 Room Air 08/17/16 16:45 60 15 81/49 98 Room Air 17 16:30 62 14 80/61 100 Room Air 08/17/16 16:15 62 14 86/61 100 Room Air 08/17/16 16:00 72 08/17/16 16:00 71 16 88/56 100 Room Air 08/17/16 15:45 69 14 87/57 99 Room Air 08/17/16 15:30 65 14 93/70 100 Room Air 08/17/16 15:15 97.5 70 15 112/79 100 Room Air 08/17/16 15:00 85 14 121/61 100 Room Air 08/17/16 14:45 70 14 115/60 100 Room Air 08/17/16 14:30 72 12 121/80 100 Room Air 08/17/16 14:15 66 12 121/74 99 Room Air 08/17/16 14:00 65 12 119/77 98 Room Air 08/17/16 13:45 65 12 120/64 98 Room Air 08/17/16 13:30 65 12 129/77 99 Room Air 08/17/16 13:15 65 12 125/77 98 Room Air 08/17/16 13:00 64 12 125/79 97 Room Air 08/17/16 12:45 63 12 128/72 96 Room Air 08/17/16 12:30 56 12 118/80 97 Room Air 08/17/16 12:15 70 12 61/40 98 Room Air 08/17/16 12:00 74 12 118/80 97 Room Air 08/17/16 12:00 97.8 08/17/16 12:00 80 08/17/16 11:45 74 12 108/73 96 Room Air 08/17/16 11:30 75 12 101/83 94 Room Air 08/17/16 11:15 68 12 118/71 96 Room Air 17 11:00 63 12 113/69 97 Room Air 08/17/16 10:45 63 12 112/65 96 Room Air 08/17/16 10:30 58 12 113/66 96 Room Air 08/17/16 10:15 55 12 99/59 98 Room Air 08/17/16 10:00 58 12 87/58 99 Room Air 08/17/16 09:45 60 12 88/50 99 Room Air 08/17/16 09:30 64 12 116/59 99 Room Air 08/17/16 09:15 67 12 108/57 99 Room Air 08/17/16 09:00 62 12 104/63 99 Room Air 08/17/16 08:45 62 12 102/64 97 Room Air Height (Feet): 6 Height (Inches): 1.00 Weight (Pounds): 219 General Appearance: no acute distress Respiratory/Chest: no respiratory distress Cardiovascular: normal rate, regular rhythm Abdomen: normal bowel sounds, soft, non tender, non distended Microbiology Date/Time Source Procedure Growth Status 08/16/16 14:11 Blood Blood Culture - Preliminary NO GROWTH AFTER 24 HOURS Resulted 08/16/16 13:00 Blood Blood Culture - Preliminary NO GROWTH AFTER 24 HOURS Resulted Laboratory Tests Test 08/17/16 10:00 08/18/16 04:25 Hemoglobin A1c 4.8 % (< 6.0) Uric Acid 10.7 mg/dL (3.0-7.5) H Magnesium Level 3.3 mg/dL (1.7-2.5) H 2.7 mg/dL (1.7-2.5) H Gamma Glutamyl Transpeptidase 10 U/L (8-61) Total Creatine Kinase 49 U/L (38-174) C-Reactive Protein, Quantitative 4.9 mg/dL (< 0.5) H Triglycerides Level 87 mg/dL (< 150) Cholesterol Level 202 mg/dL (< 200) H LDL Cholesterol 132 mg/dL (60-99) H HDL Cholesterol 53 mg/dL (> 60) Cholesterol/HDL Ratio 3.8 (3.3-4.4) Vitamin B12 Level 319 pg/mL (211-946) Thyroid Stimulating Hormone (TSH) 0.387 uIU/mL (0.300-4.500) Cortisol Pending White Blood Count 7.1 K/UL (4.8-10.8) Red Blood Count 3.08 M/UL (4.70-6.10) L Hemoglobin 9.9 G/DL (14.2-18.0) L Hematocrit 29.9 % (42.0-52.0) L Mean Corpuscular Volume 97 FL (80-99) Mean Corpuscular Hemoglobin 32.1 PG (27.0-31.0) H Mean Corpuscular Hemoglobin Concent 33.1 G/DL (32.0-36.0) Red Cell Distribution Width 14.2 % (11.6-14.8) Platelet Count 208 K/UL (150-450) Mean Platelet Volume 6.7 FL (6.5-10.1) Neutrophils (%) (Auto) 64.4 % (45.0-75.0) Lymphocytes (%) (Auto) 28.4 % (20.0-45.0) Monocytes (%) (Auto) 4.6 % (1.0-10.0) Eosinophils (%) (Auto) 1.8 % (0.0-3.0) Basophils (%) (Auto) 0.8 % (0.0-2.0) Sodium Level 140 mEQ/L (135-145) Potassium Level 3.3 mEQ/L (3.4-4.9) L Chloride Level 100 mEQ/L (98-107) Carbon Dioxide Level 19 mEQ/L (20-30) L Anion Gap 21 (5-15) H Blood Urea Nitrogen 39 mg/dL (7-23) H Creatinine 3.4 mg/dL (0.7-1.2) H Estimat Glomerular Filtration Rate 18.6 mL/min (>60) Glucose Level 100 mg/dL (74-106) Calcium Level 8.6 mg/dL (8.6-10.2) Phosphorus Level 4.4 mg/dL (2.5-4.8) Total Bilirubin 0.2 mg/dL (0.0-1.2) Aspartate Amino Transf (AST/SGOT) 9 U/L (5-40) Alanine Aminotransferase (ALT/SGPT) 5 U/L (3-41) Alkaline Phosphatase 189 U/L (40-129) H Total Protein 6.1 g/dL (6.6-8.7) L Albumin 3.1 g/dL (3.5-5.2) L Globulin 3.0 g/dL Albumin/Globulin Ratio 1.0 (1.0-2.7) Current Medications Medications (Trade) Dose Ordered Sig/Yenny Route PRN Reason Start Time Stop Time Status Last Admin Dose Admin Acetaminophen (Tylenol) 650 mg Q4H PRN ORAL Fever 08/16/16 14:30 09/15/16 14:29 Albuterol/ Ipratropium (DuoNeb 0.5-3(2.5)mg/3ml) 3 ml EVERY 4 HOURS PRN HHN Shortness of Breath 08/16/16 14:30 08/21/16 14:29 Cyproheptadine HCl (Periactin) 4 mg THREE TIMES A DAY ORAL 08/17/16 15:00 09/16/16 14:59 08/17/16 17:54 Dextrose STAT PRN IV Hypoglycemia 08/16/16 14:30 09/15/16 14:29 Dextrose/Sodium Chloride (D5ns) 1,000 ml @ 100 mls/hr Q10H IV 08/17/16 09:00 09/16/16 08:59 08/18/16 05:32 Dopamine HCl/ Dextrose (DOPamine 400mg/ 250ml) 250 ml @ 0 mls/hr Q24H IV 08/16/16 13:30 09/15/16 13:29 08/17/16 20:30 Heparin Sodium (Porcine) (Heparin 5000 units/ml) 5,000 units EVERY 12 HOURS SUBQ 08/16/16 21:00 09/15/16 20:59 08/17/16 20:28 Lorazepam (Ativan 2mg/ml 1ml) 2 mg EVERY 2 HOURS PRN IV agitation 08/16/16 14:30 08/23/16 14:29 08/17/16 20:28 Morphine Sulfate (Morphine Sulfate) 4 mg EVERY 4 HOURS PRN IVP Severe Pain (Pain Scale 7-10) 08/16/16 14:30 08/23/16 14:29 08/17/16 08:31 Nitroglycerin (Ntg) 0.4 mg Q5M PRN SL Prn Chest Pain 08/16/16 14:30 09/15/16 14:29 Ondansetron HCl (Zofran) 4 mg Q6H PRN IVP Nausea & Vomiting 08/16/16 14:30 09/15/16 14:29 08/17/16 08:15 Pantoprazole (Protonix) 40 mg DAILY ORAL 08/17/16 09:00 09/16/16 08:59 Polyethylene Glycol (Miralax) 17 gm DAILYPRN PRN ORAL Constipation 08/16/16 14:30 09/15/16 14:29 SIMONA GUPTA Aug 18, 2016 08:45
[2016-08-18] MEDS: Cyproheptadine HCl 4mg tab ORAL SCH ×2 (09:51→13:19)
[2016-08-18] MEDS: Heparin 5000 units/ml inj SUBQ SCH ×2 (09:52→21:00)
--- NOTE | 2016-08-18 10:52 | Pulmonolgy Critical Care Note ---
Critical Care - Asmt/Plan Assessment/Plan: ASSESSMENT shock hypotension metastatic prostate Ca with mets to bone acute renal failure anemia Hx of HTN hypokalemia COPD GERD PAF anorexia elevated pro BNP PLAN O FCARE ICU pressors, try to wean IVF contineu monitor renal parameters, lytes creat trending down nephro follows renal US pending etiology multifactorial ? obstruction 2 to prostate Ca, ? All medications and treatment were reviewed.SE( ACEm, diuretics), dehydartion? not eating well, replace K check K and Mg in am O2 HHN prn ECHO Venous Duplex BLE ID follows keep off abx for now fup with blood cx DVT, GI prophylaxis Bowel regimen added appetite stimulant - Periactin monitor HH, workup if trending down case discussed and evaluated by supervising physician Critical Care - Objective Last 24 Hour Vital Signs Date Time Temp Pulse Resp B/P Pulse Ox O2 Delivery O2 Flow Rate FiO2 08/18/16 10:00 74 15 102/62 100 Room Air 08/18/16 09:45 72 14 102/62 100 Room Air 08/18/16 09:30 61 14 102/64 100 Room Air 08/18/16 09:15 61 14 103/65 100 Room Air 08/18/16 09:00 62 14 100/61 100 Room Air 08/18/16 08:45 61 14 111/66 100 Room Air 08/18/16 08:30 52 20 104/61 100 Room Air 08/18/16 08:15 54 13 101/63 100 Room Air 08/18/16 08:00 54 08/18/16 08:00 98.0 54 13 112/74 99 Room Air 08/18/16 07:45 53 14 96/57 99 Room Air 08/18/16 07:30 54 14 92/63 99 Room Air 08/18/16 07:15 55 12 90/60 100 Room Air 08/18/16 07:00 60 12 85/56 98 Room Air 08/18/16 06:45 58 12 100/72 98 Room Air 08/18/16 06:30 58 12 116/68 97 Room Air 08/18/16 06:15 57 13 112/74 99 Room Air 08/18/16 06:00 58 13 113/64 99 Room Air 08/18/16 05:45 56 12 113/64 99 Room Air 08/18/16 05:30 56 12 103/63 100 Room Air 08/18/16 05:15 56 12 101/63 99 Room Air 08/18/16 05:00 57 12 105/60 99 Room Air 08/18/16 04:45 61 12 107/63 99 Room Air 08/18/16 04:30 97.1 59 12 107/71 99 Room Air 08/18/16 04:15 60 12 93/75 99 Room Air 08/18/16 04:00 59 13 98/61 99 Room Air 08/18/16 04:00 59 08/18/16 03:45 60 13 94/62 99 Room Air 08/18/16 03:30 61 15 104/65 99 Room Air 08/18/16 03:15 60 16 112/69 99 Room Air 08/18/16 03:00 59 17 104/70 99 Room Air 08/18/16 02:45 61 17 102/62 98 Room Air 08/18/16 02:30 61 15 100/67 98 Room Air 08/18/16 02:15 58 14 100/67 97 Room Air 08/18/16 02:00 60 16 89/60 96 Room Air 08/18/16 01:45 60 15 97/65 97 Room Air 08/18/16 01:30 59 13 109/74 98 Room Air 08/18/16 01:15 62 16 97/64 96 Room Air 08/18/16 01:00 61 14 97/64 98 Room Air 08/18/16 00:45 62 14 100/61 99 Room Air 08/18/16 00:30 62 15 101/64 98 Room Air 08/18/16 00:15 62 15 95/62 98 Room Air 08/18/16 00:00 59 08/18/16 00:00 97.1 60 14 98/66 98 Room Air 08/17/16 23:00 63 14 102/56 99 Room Air 08/17/16 22:45 59 18 102/59 97 Room Air 08/17/16 22:30 57 16 95/61 100 Room Air 08/17/16 22:15 61 14 90/58 100 Room Air 08/17/16 22:00 60 16 96/58 100 Room Air 08/17/16 20:45 71 14 91/53 100 Room Air 08/17/16 20:30 73 14 90/59 100 Room Air 08/17/16 20:30 93/58 3/18/17 20:15 97.1 61 16 93/58 98 Room Air 18/17 20:00 54 17 20:00 56 14 90/53 98 Room Air 17 19:45 57 14 92/53 98 Room Air 18/17 19:30 60 15 106/68 100 Room Air 17 19:15 66 15 111/67 98 Room Air 17 19:00 60 15 106/67 100 Room Air 17 18:45 66 15 104/65 98 Room Air 17 18:30 66 15 85/47 98 Room Air 17 18:15 52 14 87/49 99 Room Air 17 18:00 56 14 78/40 99 Room Air 17 17:45 58 14 73/40 99 Room Air 17 17:30 57 15 72/40 100 Room Air 17 17:15 60 15 84/52 100 Room Air 08/17/16 17:00 61 15 82/51 98 Room Air 17 16:45 60 15 81/49 98 Room Air 17 16:30 62 14 80/61 100 Room Air 17 16:15 62 14 86/61 100 Room Air 17 16:00 72 08/17/16 16:00 71 16 88/56 100 Room Air 17 15:45 69 14 87/57 99 Room Air 17 15:30 65 14 93/70 100 Room Air 17 15:15 97.5 70 15 112/79 100 Room Air 17 15:00 85 14 121/61 100 Room Air 17 14:45 70 14 115/60 100 Room Air 17 14:30 72 12 121/80 100 Room Air 17 14:15 66 12 121/74 99 Room Air 17 14:00 65 12 119/77 98 Room Air 18/17 13:45 65 12 120/64 98 Room Air 18/17 13:30 65 12 129/77 99 Room Air 18/17 13:15 65 12 125/77 98 Room Air 1817 13:00 64 12 125/79 97 Room Air 08/17/16 12:45 63 12 128/72 96 Room Air 08/17/16 12:30 56 12 118/80 97 Room Air 08/17/16 12:15 70 12 61/40 98 Room Air 08/17/16 12:00 74 12 118/80 97 Room Air 08/17/16 12:00 97.8 08/17/16 12:00 80 08/17/16 11:45 74 12 108/73 96 Room Air 08/17/16 11:30 75 12 101/83 94 Room Air 08/17/16 11:15 68 12 118/71 96 Room Air 08/17/16 11:00 63 12 113/69 97 Room Air Objective: General Appearance: WD/WN, alert, awake, responsive HEENT: normocephalic, atraumatic, anicteric, mucous membranes moist, PERRL Neck: non-tender, supple Respiratory/Chest: lungs clear, no respiratory distress, no accessory muscle use Cardiovascular/Chest: normal peripheral pulses, normal rate, regular rhythm, PICC intact Abdomen: normal bowel sounds, non tender, soft Extremities: normal range of motion, non-tender, no calf tenderness Skin Exam: warm/dry Neurologic: alert, oriented x 3, responsive, mild L side weakness Musculoskeletal: normal muscle bulk Micro: Microbiology Date/Time Source Procedure Growth Status 08/16/16 14:11 Blood Blood Culture - Preliminary NO GROWTH AFTER 24 HOURS Resulted 08/16/16 13:00 Blood Blood Culture - Preliminary NO GROWTH AFTER 24 HOURS Resulted 08/16/16 16:53 Nasal Nares MRSA Culture - Final NO METHICILLIN RESISTANT STAPH AUREUS... 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 Complete Critical Care - Subjective ROS Limited/Unobtainable: Yes Interval Events: still on Dopamine drip, trying to wean no dizziness, no lightheadedness no chest pain, no SOB Condition: critical IV Access: PICC - intact EKG Rhythm: Sinus Rhythm Fluids: D5NS at 100 Drips: Dopamine 3 mcg I&O: Intake and Output 08/17/16 08/18/16 19:00 07:00 Intake Total 1633.327 ml 1428.812 ml Output Total 1700 ml 1470 ml Balance -66.673 ml -41.188 ml Intake Oral 270 ml 50 ml IV Total 1363.327 ml 1378.812 ml Output Urine Total 1700 ml 1470 ml CXR: No acute cardiopulmonary abnormalities. Marty (Sari),Lisa PASCUAL Aug 18, 2016 10:52
[2016-08-18 11:14] LABS: ABG BASE EXCESS -6
[2016-08-18] MEDS: DOPamine 400mg/250ml 250 ML IV SCH (11:42)
--- NOTE | 2016-08-18 11:53 | General Progress Note ---
Assessment/Plan Status: doing well Status Narrative on low dose dopamin- Cr lower- Cortisol level pending Assessment/Plan status: Acute Renal Failure ( Zestril , HCTZ , ? Obstruction.....Hypotension h/o Prostate Ca with bone mets Plan: add midodrine IV fluid- diaz Monitor renal parameters pressors avoid nephrotoxics kidney GIACOMO- pending per orders Subjective ROS Limited/Unobtainable: No Constitutional: Reports: malaise, other - poor apetite Allergies: Coded Allergies: No Known Allergies (Unverified , 08/16/16) Objective Last 24 Hour Vital Signs Date Time Temp Pulse Resp B/P Pulse Ox O2 Delivery O2 Flow Rate FiO2 08/18/16 11:42 98.0 08/18/16 11:42 78/45 08/18/16 10:00 74 15 102/62 100 Room Air 08/18/16 09:45 72 14 102/62 100 Room Air 08/18/16 09:30 61 14 102/64 100 Room Air 08/18/16 09:15 61 14 103/65 100 Room Air 08/18/16 09:00 62 14 100/61 100 Room Air 08/18/16 08:45 61 14 111/66 100 Room Air 08/18/16 08:30 52 20 104/61 100 Room Air 08/18/16 08:15 54 13 101/63 100 Room Air 08/18/16 08:00 54 08/18/16 08:00 98.0 54 13 112/74 99 Room Air 08/18/16 07:45 53 14 96/57 99 Room Air 08/18/16 07:30 54 14 92/63 99 Room Air 08/18/16 07:15 55 12 90/60 100 Room Air 08/18/16 07:00 60 12 85/56 98 Room Air 08/18/16 06:45 58 12 100/72 98 Room Air 08/18/16 06:30 58 12 116/68 97 Room Air 08/18/16 06:15 57 13 112/74 99 Room Air 08/18/16 06:00 58 13 113/64 99 Room Air 08/18/16 05:45 56 12 113/64 99 Room Air 08/18/16 05:30 56 12 103/63 100 Room Air 08/18/16 05:15 56 12 101/63 99 Room Air 08/18/16 05:00 57 12 105/60 99 Room Air 08/18/16 04:45 61 12 107/63 99 Room Air 08/18/16 04:30 97.1 59 12 107/71 99 Room Air 08/18/16 04:15 60 12 93/75 99 Room Air 08/18/16 04:00 59 13 98/61 99 Room Air 08/18/16 04:00 59 08/18/16 03:45 60 13 94/62 99 Room Air 08/18/16 03:30 61 15 104/65 99 Room Air 08/18/16 03:15 60 16 112/69 99 Room Air 08/18/16 03:00 59 17 104/70 99 Room Air 08/18/16 02:45 61 17 102/62 98 Room Air 08/18/16 02:30 61 15 100/67 98 Room Air 08/18/16 02:15 58 14 100/67 97 Room Air 08/18/16 02:00 60 16 89/60 96 Room Air 08/18/16 01:45 60 15 97/65 97 Room Air 08/18/16 01:30 59 13 109/74 98 Room Air 08/18/16 01:15 62 16 97/64 96 Room Air 08/18/16 01:00 61 14 97/64 98 Room Air 08/18/16 00:45 62 14 100/61 99 Room Air 08/18/16 00:30 62 15 101/64 98 Room Air 08/18/16 00:15 62 15 95/62 98 Room Air 08/18/16 00:00 59 08/18/16 00:00 97.1 60 14 98/66 98 Room Air 08/17/16 23:00 63 14 102/56 99 Room Air 08/17/16 22:45 59 18 102/59 97 Room Air 08/17/16 22:30 57 16 95/61 100 Room Air 08/17/16 22:15 61 14 90/58 100 Room Air 08/17/16 22:00 60 16 96/58 100 Room Air 08/17/16 20:45 71 14 91/53 100 Room Air 08/17/16 20:30 73 14 90/59 100 Room Air 08/17/16 20:30 93/58 08/17/16 20:15 97.1 61 16 93/58 98 Room Air 17 20:00 54 318/17 20:00 56 14 90/53 98 Room Air 17 19:45 57 14 92/53 98 Room Air 17 19:30 60 15 106/68 100 Room Air 17 19:15 66 15 111/67 98 Room Air 17 19:00 60 15 106/67 100 Room Air 17 18:45 66 15 104/65 98 Room Air 17 18:30 66 15 85/47 98 Room Air 17 18:15 52 14 87/49 99 Room Air 17 18:00 56 14 78/40 99 Room Air 17 17:45 58 14 73/40 99 Room Air 17 17:30 57 15 72/40 100 Room Air 17 17:15 60 15 84/52 100 Room Air 17 17:00 61 15 82/51 98 Room Air 17 16:45 60 15 81/49 98 Room Air 17 16:30 62 14 80/61 100 Room Air 17 16:15 62 14 86/61 100 Room Air 17 16:00 72 17 16:00 71 16 88/56 100 Room Air 08/17/16 15:45 69 14 87/57 99 Room Air 17 15:30 65 14 93/70 100 Room Air 17 15:15 97.5 70 15 112/79 100 Room Air 17 15:00 85 14 121/61 100 Room Air 17 14:45 70 14 115/60 100 Room Air 17 14:30 72 12 121/80 100 Room Air 17 14:15 66 12 121/74 99 Room Air 17 14:00 65 12 119/77 98 Room Air 1817 13:45 65 12 120/64 98 Room Air 18/17 13:30 65 12 129/77 99 Room Air 18/17 13:15 65 12 125/77 98 Room Air 1817 13:00 64 12 125/79 97 Room Air 1817 12:45 63 12 128/72 96 Room Air 08/17/16 12:30 56 12 118/80 97 Room Air 08/17/16 12:15 70 12 61/40 98 Room Air 08/17/16 12:00 74 12 118/80 97 Room Air 08/17/16 12:00 97.8 08/17/16 12:00 80 Intake and Output 08/17/16 08/18/16 19:00 07:00 Intake Total 1633.327 ml 1428.812 ml Output Total 1700 ml 1470 ml Balance -66.673 ml -41.188 ml Intake Oral 270 ml 50 ml IV Total 1363.327 ml 1378.812 ml Output Urine Total 1700 ml 1470 ml Laboratory Tests 08/18/16 04:25: White Blood Count 7.1, Red Blood Count 3.08L, Hemoglobin 9.9L, Hematocrit 29.9L , Mean Corpuscular Volume 97, Mean Corpuscular Hemoglobin 32.1H, Mean Corpuscular Hemoglobin Concent 33.1, Red Cell Distribution Width 14.2, Platelet Count 208, Mean Platelet Volume 6.7, Neutrophils (%) (Auto) 64.4, Lymphocytes (% ) (Auto) 28.4, Monocytes (%) (Auto) 4.6, Eosinophils (%) (Auto) 1.8, Basophils ( %) (Auto) 0.8, Sodium Level 140, Potassium Level 3.3L, Chloride Level 100, Carbon Dioxide Level 19L, Anion Gap 21H, Blood Urea Nitrogen 39H, Creatinine 3.4H, Estimat Glomerular Filtration Rate 18.6, Glucose Level 100, Calcium Level 8.6, Phosphorus Level 4.4, Magnesium Level 2.7H, Total Bilirubin 0.2, Aspartate Amino Transf (AST/SGOT) 9, Alanine Aminotransferase (ALT/SGPT) 5, Alkaline Phosphatase 189H, Total Protein 6.1L, Albumin 3.1L, Globulin 3.0, Albumin/ Globulin Ratio 1.0 08/18/16 11:00: Arterial Blood pH 7.460H, Arterial Blood Partial Pressure CO2 24.0*L, Arterial Blood Partial Pressure O2 115.0H, Arterial Blood HCO3 17.0L, Arterial Blood Oxygen Saturation 98.0, Arterial Blood Base Excess -6, Seun Test Height (Feet): 6 Height (Inches): 1.00 Weight (Pounds): 219 General Appearance: no apparent distress Cardiovascular: normal rate Respiratory/Chest: lungs clear Abdomen: soft YRIS VALDEZ Aug 18, 2016 11:53
[2016-08-18] MEDS ORDERED: Midodrine 10mg tab ORAL SCH (13:00)
--- NOTE | 2016-08-18 13:33 | Cardiology Progress Note ---
Assessment/Plan Assessment/Plan hypotension due to medications improving stable from cardiac standpoint Subjective Subjective feels better dizziness improved no chest pain Objective Last 24 Hour Vital Signs Date Time Temp Pulse Resp B/P Pulse Ox O2 Delivery O2 Flow Rate FiO2 08/18/16 13:00 86/56 08/18/16 13:00 115/69 08/18/16 12:45 55 18 112/68 97 Room Air 08/18/16 12:30 58 16 108/68 98 Room Air 08/18/16 12:15 58 10 99/64 100 Room Air 08/18/16 12:00 98.0 61 14 114/71 99 Room Air 08/18/16 12:00 61 08/18/16 11:45 77 18 116/71 100 Room Air 08/18/16 11:42 98.0 08/18/16 11:42 78/45 08/18/16 11:30 94 16 109/68 100 Room Air 08/18/16 11:15 68 18 94/45 100 Room Air 08/18/16 10:45 61 16 67/47 100 Room Air 08/18/16 10:30 62 14 78/50 99 Room Air 08/18/16 10:00 74 15 102/62 100 Room Air 08/18/16 09:45 72 14 102/62 100 Room Air 08/18/16 09:30 61 14 102/64 100 Room Air 08/18/16 09:15 61 14 103/65 100 Room Air 08/18/16 09:00 62 14 100/61 100 Room Air 08/18/16 08:45 61 14 111/66 100 Room Air 08/18/16 08:30 52 20 104/61 100 Room Air 08/18/16 08:15 54 13 101/63 100 Room Air 08/18/16 08:00 54 08/18/16 08:00 98.0 54 13 112/74 99 Room Air 08/18/16 07:45 53 14 96/57 99 Room Air 08/18/16 07:30 54 14 92/63 99 Room Air 08/18/16 07:15 55 12 90/60 100 Room Air 08/18/16 07:00 60 12 85/56 98 Room Air 08/18/16 06:45 58 12 100/72 98 Room Air 08/18/16 06:30 58 12 116/68 97 Room Air 08/18/16 06:15 57 13 112/74 99 Room Air 08/18/16 06:00 58 13 113/64 99 Room Air 08/18/16 05:45 56 12 113/64 99 Room Air 08/18/16 05:30 56 12 103/63 100 Room Air 08/18/16 05:15 56 12 101/63 99 Room Air 08/18/16 05:00 57 12 105/60 99 Room Air 08/18/16 04:45 61 12 107/63 99 Room Air 08/18/16 04:30 97.1 59 12 107/71 99 Room Air 08/18/16 04:15 60 12 93/75 99 Room Air 08/18/16 04:00 59 13 98/61 99 Room Air 08/18/16 04:00 59 08/18/16 03:45 60 13 94/62 99 Room Air 08/18/16 03:30 61 15 104/65 99 Room Air 08/18/16 03:15 60 16 112/69 99 Room Air 08/18/16 03:00 59 17 104/70 99 Room Air 08/18/16 02:45 61 17 102/62 98 Room Air 08/18/16 02:30 61 15 100/67 98 Room Air 08/18/16 02:15 58 14 100/67 97 Room Air 08/18/16 02:00 60 16 89/60 96 Room Air 08/18/16 01:45 60 15 97/65 97 Room Air 08/18/16 01:30 59 13 109/74 98 Room Air 08/18/16 01:15 62 16 97/64 96 Room Air 08/18/16 01:00 61 14 97/64 98 Room Air 08/18/16 00:45 62 14 100/61 99 Room Air 08/18/16 00:30 62 15 101/64 98 Room Air 08/18/16 00:15 62 15 95/62 98 Room Air 08/18/16 00:00 59 08/18/16 00:00 97.1 60 14 98/66 98 Room Air 08/17/16 23:00 63 14 102/56 99 Room Air 08/17/16 22:45 59 18 102/59 97 Room Air 08/17/16 22:30 57 16 95/61 100 Room Air 08/17/16 22:15 61 14 90/58 100 Room Air 3/18/17 22:00 60 16 96/58 100 Room Air 18/17 20:45 71 14 91/53 100 Room Air 1817 20:30 73 14 90/59 100 Room Air 18/17 20:30 93/58 18/17 20:15 97.1 61 16 93/58 98 Room Air 17 20:00 54 17 20:00 56 14 90/53 98 Room Air 17 19:45 57 14 92/53 98 Room Air 17 19:30 60 15 106/68 100 Room Air 08/17/16 19:15 66 15 111/67 98 Room Air 08/17/16 19:00 60 15 106/67 100 Room Air 17 18:45 66 15 104/65 98 Room Air 17 18:30 66 15 85/47 98 Room Air 08/17/16 18:15 52 14 87/49 99 Room Air 08/17/16 18:00 56 14 78/40 99 Room Air 08/17/16 17:45 58 14 73/40 99 Room Air 17 17:30 57 15 72/40 100 Room Air 17 17:15 60 15 84/52 100 Room Air 17 17:00 61 15 82/51 98 Room Air 17 16:45 60 15 81/49 98 Room Air 17 16:30 62 14 80/61 100 Room Air 17 16:15 62 14 86/61 100 Room Air 17 16:00 72 17 16:00 71 16 88/56 100 Room Air 1817 15:45 69 14 87/57 99 Room Air 1817 15:30 65 14 93/70 100 Room Air 1817 15:15 97.5 70 15 112/79 100 Room Air 1817 15:00 85 14 121/61 100 Room Air 1817 14:45 70 14 115/60 100 Room Air 1817 14:30 72 12 121/80 100 Room Air 1817 14:15 66 12 121/74 99 Room Air 1817 14:00 65 12 119/77 98 Room Air 08/17/16 13:45 65 12 120/64 98 Room Air General Appearance: no apparent distress EENT: PERRL/EOMI Neck: supple Rhythm: NSR Cardiovascular: normal rate Respiratory/Chest: lungs clear Abdomen: soft Extremities: trace edema Intake and Output 08/17/16 08/18/16 19:00 07:00 Intake Total 1633.327 ml 1428.812 ml Output Total 1700 ml 1470 ml Balance -66.673 ml -41.188 ml Intake Oral 270 ml 50 ml IV Total 1363.327 ml 1378.812 ml Output Urine Total 1700 ml 1470 ml Laboratory Tests Test 08/18/16 04:25 08/18/16 11:00 White Blood Count 7.1 K/UL (4.8-10.8) Red Blood Count 3.08 M/UL (4.70-6.10) L Hemoglobin 9.9 G/DL (14.2-18.0) L Hematocrit 29.9 % (42.0-52.0) L Mean Corpuscular Volume 97 FL (80-99) Mean Corpuscular Hemoglobin 32.1 PG (27.0-31.0) H Mean Corpuscular Hemoglobin Concent 33.1 G/DL (32.0-36.0) Red Cell Distribution Width 14.2 % (11.6-14.8) Platelet Count 208 K/UL (150-450) Mean Platelet Volume 6.7 FL (6.5-10.1) Neutrophils (%) (Auto) 64.4 % (45.0-75.0) Lymphocytes (%) (Auto) 28.4 % (20.0-45.0) Monocytes (%) (Auto) 4.6 % (1.0-10.0) Eosinophils (%) (Auto) 1.8 % (0.0-3.0) Basophils (%) (Auto) 0.8 % (0.0-2.0) Sodium Level 140 mEQ/L (135-145) Potassium Level 3.3 mEQ/L (3.4-4.9) L Chloride Level 100 mEQ/L (98-107) Carbon Dioxide Level 19 mEQ/L (20-30) L Anion Gap 21 (5-15) H Blood Urea Nitrogen 39 mg/dL (7-23) H Creatinine 3.4 mg/dL (0.7-1.2) H Estimat Glomerular Filtration Rate 18.6 mL/min (>60) Glucose Level 100 mg/dL (74-106) Calcium Level 8.6 mg/dL (8.6-10.2) Phosphorus Level 4.4 mg/dL (2.5-4.8) Magnesium Level 2.7 mg/dL (1.7-2.5) H Total Bilirubin 0.2 mg/dL (0.0-1.2) Aspartate Amino Transf (AST/SGOT) 9 U/L (5-40) Alanine Aminotransferase (ALT/SGPT) 5 U/L (3-41) Alkaline Phosphatase 189 U/L (40-129) H Total Protein 6.1 g/dL (6.6-8.7) L Albumin 3.1 g/dL (3.5-5.2) L Globulin 3.0 g/dL Albumin/Globulin Ratio 1.0 (1.0-2.7) Arterial Blood pH 7.460 (7.350-7.450) Arterial Blood Partial Pressure CO2 24.0 mmHg (35.0-45.0) *L Arterial Blood Partial Pressure O2 115.0 mmHg (75.0-100.0) H Arterial Blood HCO3 17.0 mmol/L (22.0-26.0) L Arterial Blood Oxygen Saturation 98.0 % (92.0-98.0) Arterial Blood Base Excess -6 Seun Test Microbiology Date/Time Source Procedure Growth Status 08/16/16 14:11 Blood Blood Culture - Preliminary NO GROWTH AFTER 24 HOURS Resulted 08/16/16 13:00 Blood Blood Culture - Preliminary NO GROWTH AFTER 24 HOURS Resulted 08/16/16 16:53 Nasal Nares MRSA Culture - Final NO METHICILLIN RESISTANT STAPH AUREUS... 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 Complete ALCIRA HARO Aug 18, 2016 13:33
[2016-08-18] MEDS ORDERED: Nitroglycerin Subl 0.4mg tab (Bottle Of 25) SL PRN (18:30)
[2016-08-18] MEDS ORDERED: DuoNeb 0.5-3(2.5)mg/3ml neb HHN PRN (19:00)
[2016-08-18] MEDS ORDERED: Miralax 17gm pkt ORAL PRN (19:00)
[2016-08-18] MEDS ORDERED: Morphine Sulfate 4mg/ml Inj IVP PRN (19:00)
[2016-08-18] MEDS: LORazepam Inj 2mg/ml 1ml IV SCH ×3 (19:37→23:00)
[2016-08-19] MEDS ORDERED: LORazepam Inj 2mg/ml 1ml IV PRN ×3 (00:15→20:15)
[2016-08-19] MEDS: LORazepam Inj 2mg/ml 1ml IV SCH ×8 (01:00→14:53)
[2016-08-19 04:00] VITALS: BP 90/62
[2016-08-19] MEDS: D5NS 1,000 ML IV SCH ×3 (04:38→20:10)
[2016-08-19 07:16] LABS: BASOPHILS % (AUTO) 0.6 % (0.0-2.0); EOSINOPHILS % (AUTO) 2.1 % (0.0-3.0); MEAN CORPUSCULAR HEMOGLOBIN 32.5 PG (27.0-31.0); MEAN CORPUSCULAR HGB CONC 33.1 G/DL (32.0-36.0); MEAN CORPUSCULAR VOLUME 98 FL (80-99); MEAN PLATELET VOLUME 6.8 FL (6.5-10.1); MONOCYTES % (AUTO) 4.9 % (1.0-10.0); NEUTROPHILS % (AUTO) 63.4 % (45.0-75.0); PLATELET COUNT 180 K/UL (150-450); RED BLOOD COUNT 3.06 M/UL (4.70-6.10); RED CELL DISTRIBUTION WIDTH 14.4 % (11.6-14.8); WHITE BLOOD COUNT 7.3 K/UL (4.8-10.8)
[2016-08-19 07:35] VITALS: BP 103/53
[2016-08-19 07:42] LABS: ALBUMIN/GLOBULIN RATIO 1.1 (1.0-2.7); CALCIUM 8.2 mg/dL (8.6-10.2); CREATININE 2.6 mg/dL (0.7-1.2); GLOMERULAR FILTRATION RATE 25.3 mL/min (>60); PHOSPHORUS 2.7 mg/dL (2.5-4.8); POTASSIUM 4.3 mEQ/L (3.4-4.9); TOTAL PROTEIN 5.9 g/dL (6.6-8.7); URIC ACID 6.8 mg/dL (3.0-7.5)
[2016-08-19] MEDS: Heparin 5000 units/ml inj SUBQ SCH ×2 (08:25→20:09)
--- NOTE | 2016-08-19 09:41 | Infectious Diseases Prog Note ---
Assessment/Plan Assessment/Plan ASSESSMENT: 61 y/o male with: // Shock SP - off pressors ?iatrogenic r/o septic - Cx NGTD - trop(-) x1, UA(-), CXR NAF - TTE: EF 70-75%, grade I diastolic dysfunction, trace valvular disease // Afebrile without leukocytosis // ARF - improved // Metastatic prostate CA, on chemo // NKDA // Full Code PLAN: - monitor pt off of ABX for now - f/u BCx - monitor CBC, temperatures - monitor BMP Subjective Allergies: Coded Allergies: No Known Allergies (Unverified , 08/16/16) Subjective remains afebrile. no new complaint transferred to tele Objective Vital Signs Last 24 Hour Vital Signs Date Time Temp Pulse Resp B/P Pulse Ox O2 Delivery O2 Flow Rate FiO2 08/19/16 07:35 103/53 08/19/16 04:00 96.6 58 20 90/62 92 08/19/16 03:56 63 08/19/16 01:30 60 08/18/16 20:00 62 08/18/16 20:00 96.3 41 20 85/58 90 Room Air 08/18/16 16:51 97.5 53 20 119/64 96 Room Air 08/18/16 16:00 97.2 56 17 107/58 100 Room Air 08/18/16 16:00 56 08/18/16 15:00 72 20 133/75 100 Room Air 08/18/16 14:00 64 18 140/63 100 Room Air 08/18/16 13:00 65 15 115/69 97 Room Air 08/18/16 13:00 86/56 08/18/16 13:00 115/69 08/18/16 12:45 55 18 112/68 97 Room Air 08/18/16 12:30 58 16 108/68 98 Room Air 08/18/16 12:15 58 10 99/64 100 Room Air 08/18/16 12:00 98.0 61 14 114/71 99 Room Air 08/18/16 12:00 61 08/18/16 11:45 77 18 116/71 100 Room Air 08/18/16 11:42 98.0 08/18/16 11:42 78/45 08/18/16 11:30 94 16 109/68 100 Room Air 08/18/16 11:15 68 18 94/45 100 Room Air 08/18/16 10:45 61 16 67/47 100 Room Air 08/18/16 10:30 62 14 78/50 99 Room Air 08/18/16 10:00 74 15 102/62 100 Room Air 08/18/16 09:45 72 14 102/62 100 Room Air Height (Feet): 6 Height (Inches): 1.00 Weight (Pounds): 219 General Appearance: no acute distress Respiratory/Chest: no respiratory distress Cardiovascular: normal rate, regular rhythm Abdomen: normal bowel sounds, soft, non tender, non distended Microbiology Date/Time Source Procedure Growth Status 08/16/16 14:11 Blood Blood Culture - Preliminary NO GROWTH AFTER 48 HOURS Resulted 08/16/16 13:00 Blood Blood Culture - Preliminary NO GROWTH AFTER 48 HOURS Resulted 08/16/16 16:53 Nasal Nares MRSA Culture - Final NO METHICILLIN RESISTANT STAPH AUREUS... 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 Complete Laboratory Tests Test 08/18/16 11:00 08/19/16 06:17 Arterial Blood pH 7.460 (7.350-7.450) Arterial Blood Partial Pressure CO2 24.0 mmHg (35.0-45.0) *L Arterial Blood Partial Pressure O2 115.0 mmHg (75.0-100.0) H Arterial Blood HCO3 17.0 mmol/L (22.0-26.0) L Arterial Blood Oxygen Saturation 98.0 % (92.0-98.0) Arterial Blood Base Excess -6 Seun Test White Blood Count 7.3 K/UL (4.8-10.8) Red Blood Count 3.06 M/UL (4.70-6.10) L Hemoglobin 10.0 G/DL (14.2-18.0) L Hematocrit 30.1 % (42.0-52.0) L Mean Corpuscular Volume 98 FL (80-99) Mean Corpuscular Hemoglobin 32.5 PG (27.0-31.0) H Mean Corpuscular Hemoglobin Concent 33.1 G/DL (32.0-36.0) Red Cell Distribution Width 14.4 % (11.6-14.8) Platelet Count 180 K/UL (150-450) Mean Platelet Volume 6.8 FL (6.5-10.1) Neutrophils (%) (Auto) 63.4 % (45.0-75.0) Lymphocytes (%) (Auto) 29.0 % (20.0-45.0) Monocytes (%) (Auto) 4.9 % (1.0-10.0) Eosinophils (%) (Auto) 2.1 % (0.0-3.0) Basophils (%) (Auto) 0.6 % (0.0-2.0) Sodium Level 143 mEQ/L (135-145) Potassium Level 4.3 mEQ/L (3.4-4.9) Chloride Level 104 mEQ/L (98-107) Carbon Dioxide Level 22 mEQ/L (20-30) Anion Gap 17 (5-15) H Blood Urea Nitrogen 28 mg/dL (7-23) H Creatinine 2.6 mg/dL (0.7-1.2) H Estimat Glomerular Filtration Rate 25.3 mL/min (>60) Glucose Level 84 mg/dL (74-106) Uric Acid 6.8 mg/dL (3.0-7.5) Calcium Level 8.2 mg/dL (8.6-10.2) L Phosphorus Level 2.7 mg/dL (2.5-4.8) Total Bilirubin 0.2 mg/dL (0.0-1.2) Aspartate Amino Transf (AST/SGOT) 9 U/L (5-40) Alanine Aminotransferase (ALT/SGPT) 5 U/L (3-41) Alkaline Phosphatase 182 U/L (40-129) H Pro-B-Type Natriuretic Peptide 1471 pg/mL (0-125) H Total Protein 5.9 g/dL (6.6-8.7) L Albumin 3.1 g/dL (3.5-5.2) L Globulin 2.8 g/dL Albumin/Globulin Ratio 1.1 (1.0-2.7) Current Medications Medications (Trade) Dose Ordered Sig/Yenny Route PRN Reason Start Time Stop Time Status Last Admin Dose Admin Acetaminophen (Tylenol) 650 mg Q4H PRN ORAL T>100.5 08/18/16 18:30 09/17/16 18:29 Albuterol/ Ipratropium (DuoNeb 0.5-3(2.5)mg/3ml) 3 ml Q4H PRN HHN Shortness of Breath 08/18/16 19:00 08/23/16 18:59 Cyproheptadine HCl (Periactin) 4 mg THREE TIMES A DAY ORAL 08/19/16 20:00 09/18/16 19:59 Dextrose (Dextrose 50%) STAT PRN IV Hypoglycemia 08/19/16 14:30 09/18/16 14:29 Dextrose/Sodium Chloride (D5ns) 1,000 ml @ 100 mls/hr Q10H IV 08/18/16 18:30 09/17/16 18:29 08/19/16 04:38 Heparin Sodium (Porcine) (Heparin 5000 units/ml) 5,000 units EVERY 12 HOURS SUBQ 08/18/16 21:00 09/17/16 20:59 08/19/16 08:25 Lorazepam (Ativan 2mg/ml 1ml) 2 mg Q2H IV 08/18/16 19:00 08/25/16 18:59 08/19/16 08:25 Lorazepam (Ativan 2mg/ml 1ml) 2 mg Q4H PRN IV For Anxiety 08/19/16 00:15 08/26/16 00:14 Midodrine (Pro-Amatine) 10 mg THREE TIMES A DAY ORAL 08/19/16 19:30 09/18/16 19:29 Morphine Sulfate (Morphine Sulfate) 4 mg Q4H PRN IVP Severe Pain (Pain Scale 7-10) 08/18/16 19:00 08/25/16 18:59 08/19/16 08:29 Nitroglycerin (Ntg) 0.4 mg Q5M PRN SL Prn Chest Pain 08/18/16 18:30 09/17/16 18:29 Ondansetron HCl (Zofran) 4 mg Q6H PRN IVP Nausea & Vomiting 08/18/16 19:00 09/17/16 18:59 Polyethylene Glycol (Miralax) 17 gm DAILYPRN PRN ORAL Constipation 08/18/16 19:00 09/17/16 18:59 SIMONA GUPTA 20, 2017 09:41
--- NOTE | 2016-08-19 10:14 | General Progress Note ---
Assessment/Plan Status: stable Status Narrative Cr lower Assessment/Plan status: Acute Renal Failure ( Zestril , HCTZ , ? Obstruction.....Hypotension h/o Prostate Ca with bone mets Hypotension Plan: on midodrine IV fluid- diaz Monitor renal parameters avoid nephrotoxics kidney GIACOMO- pending per orders Subjective ROS Limited/Unobtainable: No Constitutional: Reports: malaise Allergies: Coded Allergies: No Known Allergies (Unverified , 08/16/16) Objective Last 24 Hour Vital Signs Date Time Temp Pulse Resp B/P Pulse Ox O2 Delivery O2 Flow Rate FiO2 08/19/16 07:35 103/53 08/19/16 04:00 96.6 58 20 90/62 92 08/19/16 03:56 63 08/19/16 01:30 60 08/18/16 20:00 62 08/18/16 20:00 96.3 41 20 85/58 90 Room Air 08/18/16 16:51 97.5 53 20 119/64 96 Room Air 08/18/16 16:00 97.2 56 17 107/58 100 Room Air 08/18/16 16:00 56 08/18/16 15:00 72 20 133/75 100 Room Air 08/18/16 14:00 64 18 140/63 100 Room Air 08/18/16 13:00 65 15 115/69 97 Room Air 08/18/16 13:00 86/56 08/18/16 13:00 115/69 08/18/16 12:45 55 18 112/68 97 Room Air 08/18/16 12:30 58 16 108/68 98 Room Air 08/18/16 12:15 58 10 99/64 100 Room Air 08/18/16 12:00 98.0 61 14 114/71 99 Room Air 08/18/16 12:00 61 08/18/16 11:45 77 18 116/71 100 Room Air 08/18/16 11:42 98.0 08/18/16 11:42 78/45 08/18/16 11:30 94 16 109/68 100 Room Air 08/18/16 11:15 68 18 94/45 100 Room Air 08/18/16 10:45 61 16 67/47 100 Room Air 08/18/16 10:30 62 14 78/50 99 Room Air Intake and Output 08/18/16 08/19/16 19:00 07:00 Intake Total 2110.965 ml 1200 ml Output Total 1285 ml 150 ml Balance 825.965 ml 1050 ml Intake Oral 370 ml IV Total 740.965 ml 1200 ml Other 1000 ml Output Urine Total 1285 ml 150 ml # Voids 2 1 Laboratory Tests 08/18/16 11:00: Arterial Blood pH 7.460H, Arterial Blood Partial Pressure CO2 24.0*L, Arterial Blood Partial Pressure O2 115.0H, Arterial Blood HCO3 17.0L, Arterial Blood Oxygen Saturation 98.0, Arterial Blood Base Excess -6, Seun Test 08/19/16 06:17: White Blood Count 7.3, Red Blood Count 3.06L, Hemoglobin 10.0L, Hematocrit 30.1L , Mean Corpuscular Volume 98, Mean Corpuscular Hemoglobin 32.5H, Mean Corpuscular Hemoglobin Concent 33.1, Red Cell Distribution Width 14.4, Platelet Count 180, Mean Platelet Volume 6.8, Neutrophils (%) (Auto) 63.4, Lymphocytes (% ) (Auto) 29.0, Monocytes (%) (Auto) 4.9, Eosinophils (%) (Auto) 2.1, Basophils ( %) (Auto) 0.6, Sodium Level 143, Potassium Level 4.3, Chloride Level 104, Carbon Dioxide Level 22, Anion Gap 17H, Blood Urea Nitrogen 28H, Creatinine 2.6H , Estimat Glomerular Filtration Rate 25.3, Glucose Level 84, Uric Acid 6.8, Calcium Level 8.2L, Phosphorus Level 2.7, Total Bilirubin 0.2, Aspartate Amino Transf (AST/SGOT) 9, Alanine Aminotransferase (ALT/SGPT) 5, Alkaline Phosphatase 182H, Pro-B-Type Natriuretic Peptide 1471H, Total Protein 5.9L, Albumin 3.1L, Globulin 2.8, Albumin/Globulin Ratio 1.1 Height (Feet): 6 Height (Inches): 1.00 Weight (Pounds): 219 General Appearance: no apparent distress Cardiovascular: bradycardia Objective other PE not changed YRIS VALDEZ Aug 19, 2016 10:14
[2016-08-19 12:00] VITALS: BP 104/56
--- NOTE | 2016-08-19 13:04 | Pulmonology Progress Note ---
Assessment/Plan Problems: (1) Shock (2) COPD (chronic obstructive pulmonary disease) (3) History of CVA (cerebrovascular accident) (4) ATN (acute tubular necrosis) (5) Prostate cancer metastatic to bone (6) GERD (gastroesophageal reflux disease) Assessment/Plan Off pressors, continue IV fluids check electrolytes monitor wbc off abx Subjective ROS Limited/Unobtainable: No Interval Events: no new complains Allergies: Coded Allergies: No Known Allergies (Unverified , 08/16/16) Objective Last 24 Hour Vital Signs Date Time Temp Pulse Resp B/P Pulse Ox O2 Delivery O2 Flow Rate FiO2 08/19/16 07:35 103/53 08/19/16 04:00 96.6 58 20 90/62 92 08/19/16 03:56 63 08/19/16 01:30 60 08/18/16 20:00 62 08/18/16 20:00 96.3 41 20 85/58 90 Room Air 08/18/16 16:51 97.5 53 20 119/64 96 Room Air 08/18/16 16:00 97.2 56 17 107/58 100 Room Air 08/18/16 16:00 56 08/18/16 15:00 72 20 133/75 100 Room Air 08/18/16 14:00 64 18 140/63 100 Room Air Intake and Output 08/18/16 08/19/16 19:00 07:00 Intake Total 2110.965 ml 1200 ml Output Total 1285 ml 150 ml Balance 825.965 ml 1050 ml Intake Oral 370 ml IV Total 740.965 ml 1200 ml Other 1000 ml Output Urine Total 1285 ml 150 ml # Voids 2 1 General Appearance: WD/WN HEENT: normocephalic Respiratory/Chest: chest wall non-tender, lungs clear Cardiovascular: normal peripheral pulses, normal rate Abdomen: normal bowel sounds, soft, non tender Genitourinary: normal external genitalia Extremities: no cyanosis Skin: no rash, no ulcers 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 Complete Laboratory Tests 08/19/16 06:17: White Blood Count 7.3, Red Blood Count 3.06L, Hemoglobin 10.0L, Hematocrit 30.1L , Mean Corpuscular Volume 98, Mean Corpuscular Hemoglobin 32.5H, Mean Corpuscular Hemoglobin Concent 33.1, Red Cell Distribution Width 14.4, Platelet Count 180, Mean Platelet Volume 6.8, Neutrophils (%) (Auto) 63.4, Lymphocytes (% ) (Auto) 29.0, Monocytes (%) (Auto) 4.9, Eosinophils (%) (Auto) 2.1, Basophils ( %) (Auto) 0.6, Sodium Level 143, Potassium Level 4.3, Chloride Level 104, Carbon Dioxide Level 22, Anion Gap 17H, Blood Urea Nitrogen 28H, Creatinine 2.6H , Estimat Glomerular Filtration Rate 25.3, Glucose Level 84, Uric Acid 6.8, Calcium Level 8.2L, Phosphorus Level 2.7, Total Bilirubin 0.2, Aspartate Amino Transf (AST/SGOT) 9, Alanine Aminotransferase (ALT/SGPT) 5, Alkaline Phosphatase 182H, Pro-B-Type Natriuretic Peptide 1471H, Total Protein 5.9L, Albumin 3.1L, Globulin 2.8, Albumin/Globulin Ratio 1.1 Current Medications Medications (Trade) Dose Ordered Sig/Yenny Route PRN Reason Start Time Stop Time Status Last Admin Dose Admin Acetaminophen (Tylenol) 650 mg Q4H PRN ORAL T>100.5 08/18/16 18:30 09/17/16 18:29 Albuterol/ Ipratropium (DuoNeb 0.5-3(2.5)mg/3ml) 3 ml Q4H PRN HHN Shortness of Breath 08/18/16 19:00 08/23/16 18:59 Cyproheptadine HCl (Periactin) 4 mg THREE TIMES A DAY ORAL 08/19/16 20:00 09/18/16 19:59 Dextrose (Dextrose 50%) STAT PRN IV Hypoglycemia 08/19/16 14:30 09/18/16 14:29 Dextrose/Sodium Chloride (D5ns) 1,000 ml @ 100 mls/hr Q10H IV 08/18/16 18:30 09/17/16 18:29 08/19/16 04:38 Heparin Sodium (Porcine) (Heparin 5000 units/ml) 5,000 units EVERY 12 HOURS SUBQ 08/18/16 21:00 09/17/16 20:59 08/19/16 08:25 Lorazepam (Ativan 2mg/ml 1ml) 2 mg Q2H IV 08/18/16 19:00 08/25/16 18:59 08/19/16 11:02 Lorazepam (Ativan 2mg/ml 1ml) 2 mg Q4H PRN IV For Anxiety 08/19/16 00:15 08/26/16 00:14 Midodrine (Pro-Amatine) 10 mg THREE TIMES A DAY ORAL 08/19/16 19:30 09/18/16 19:29 Morphine Sulfate (Morphine Sulfate) 4 mg Q4H PRN IVP Severe Pain (Pain Scale 7-10) 08/18/16 19:00 08/25/16 18:59 08/19/16 08:29 Nitroglycerin (Ntg) 0.4 mg Q5M PRN SL Prn Chest Pain 08/18/16 18:30 09/17/16 18:29 Ondansetron HCl (Zofran) 4 mg Q6H PRN IVP Nausea & Vomiting 08/18/16 19:00 09/17/16 18:59 Polyethylene Glycol (Miralax) 17 gm DAILYPRN PRN ORAL Constipation 08/18/16 19:00 09/17/16 18:59 ZURI NORRIS Aug 19, 2016 13:04
[2016-08-19] MEDS ORDERED: DOPamine 400mg/250ml 250 ML IV SCH (13:30)
[2016-08-19 16:00] VITALS: BP 90/58
[2016-08-19] MEDS ORDERED: D5NS 1,000 ML IV SCH (17:45)
[2016-08-19] MEDS ORDERED: Nitroglycerin Subl 0.4mg tab (Bottle Of 25) SL PRN (17:45)
[2016-08-19] MEDS ORDERED: LORazepam Inj 2mg/ml 1ml IV SCH (17:45)
[2016-08-19] MEDS ORDERED: DuoNeb 0.5-3(2.5)mg/3ml neb HHN PRN (19:00)
[2016-08-19] MEDS ORDERED: Miralax 17gm pkt ORAL PRN (19:00)
[2016-08-19] MEDS ORDERED: Morphine Sulfate 4mg/ml Inj IVP PRN (19:00)
[2016-08-19] MEDS ORDERED: Midodrine 10mg tab ORAL SCH (19:30)
--- NOTE | 2016-08-19 19:38 | Cardiology Progress Note ---
Assessment/Plan Assessment/Plan hypotension metastatic prostate Ca with mets to bone acute renal failure anemia Hx of HTN hypokalemia COPD bp still at times low cortisol was normal blood cx neg echo to be reviewed continue on iv hydration will need to avoid diuretics recheck orthsattic vital now and in am Objective Last 24 Hour Vital Signs Date Time Temp Pulse Resp B/P Pulse Ox O2 Delivery O2 Flow Rate FiO2 08/19/16 16:00 97.8 60 20 90/58 97 Room Air 08/19/16 12:00 97.0 57 17 104/56 92 Room Air 08/19/16 11:38 56 08/19/16 08:01 46 08/19/16 07:35 103/53 08/19/16 04:00 96.6 58 20 90/62 92 08/19/16 03:56 63 08/19/16 01:30 60 08/18/16 20:00 62 08/18/16 20:00 96.3 41 20 85/58 90 Room Air Intake and Output 08/18/16 08/19/16 19:00 07:00 Intake Total 2110.965 ml 1200 ml Output Total 1285 ml 150 ml Balance 825.965 ml 1050 ml Intake Oral 370 ml IV Total 740.965 ml 1200 ml Other 1000 ml Output Urine Total 1285 ml 150 ml # Voids 2 1 Laboratory Tests Test 08/19/16 06:17 White Blood Count 7.3 K/UL (4.8-10.8) Red Blood Count 3.06 M/UL (4.70-6.10) L Hemoglobin 10.0 G/DL (14.2-18.0) L Hematocrit 30.1 % (42.0-52.0) L Mean Corpuscular Volume 98 FL (80-99) Mean Corpuscular Hemoglobin 32.5 PG (27.0-31.0) H Mean Corpuscular Hemoglobin Concent 33.1 G/DL (32.0-36.0) Red Cell Distribution Width 14.4 % (11.6-14.8) Platelet Count 180 K/UL (150-450) Mean Platelet Volume 6.8 FL (6.5-10.1) Neutrophils (%) (Auto) 63.4 % (45.0-75.0) Lymphocytes (%) (Auto) 29.0 % (20.0-45.0) Monocytes (%) (Auto) 4.9 % (1.0-10.0) Eosinophils (%) (Auto) 2.1 % (0.0-3.0) Basophils (%) (Auto) 0.6 % (0.0-2.0) Sodium Level 143 mEQ/L (135-145) Potassium Level 4.3 mEQ/L (3.4-4.9) Chloride Level 104 mEQ/L (98-107) Carbon Dioxide Level 22 mEQ/L (20-30) Anion Gap 17 (5-15) H Blood Urea Nitrogen 28 mg/dL (7-23) H Creatinine 2.6 mg/dL (0.7-1.2) H Estimat Glomerular Filtration Rate 25.3 mL/min (>60) Glucose Level 84 mg/dL (74-106) Uric Acid 6.8 mg/dL (3.0-7.5) Calcium Level 8.2 mg/dL (8.6-10.2) L Phosphorus Level 2.7 mg/dL (2.5-4.8) Total Bilirubin 0.2 mg/dL (0.0-1.2) Aspartate Amino Transf (AST/SGOT) 9 U/L (5-40) Alanine Aminotransferase (ALT/SGPT) 5 U/L (3-41) Alkaline Phosphatase 182 U/L (40-129) H Pro-B-Type Natriuretic Peptide 1471 pg/mL (0-125) H Total Protein 5.9 g/dL (6.6-8.7) L Albumin 3.1 g/dL (3.5-5.2) L Globulin 2.8 g/dL Albumin/Globulin Ratio 1.1 (1.0-2.7) MILAD DIANE Aug 19, 2016 19:38
[2016-08-19 20:00] VITALS: BP 103/66
[2016-08-19] MEDS ORDERED: Cyproheptadine HCl 4mg tab ORAL SCH ×2 (20:00)
[2016-08-19] MEDS: Cyproheptadine HCl 4mg tab ORAL SCH (20:09)
[2016-08-19] MEDS: Midodrine 10mg tab ORAL SCH (20:09)
--- NOTE | 2016-08-19 20:25 | Cardiology Report ---
APPROVED REPORT EXAM: Two-dimensional and M-mode echocardiogram with Doppler and color Doppler. INDICATION Bundle branch block Technically difficult study due to poor acoustic windows. M-mode measurements not obtainable due to cardiac structure. Normal left ventricular chamber size, hyperdynamic systolic function and wall motion. Left ventricular ejection fraction estimated to be 70-75%. No evidence of pericardial fat or effusion. Mild left atrial enlargement by 2D. Right cardiac chamber sizes are within normal limits. Mild focal aortic valve sclerosis with adequate cusp excursion Thickened mitral valve leaflets with normal excursion. Mitral annulus and aortic root calcification. Pulmonic valve not well visualized. Normal tricuspid valve structure. IVC is normal in size physiologic collapse. A color flow and spectral Doppler study was performed and revealed: No aortic regurgitation. Trace mitral regurgitation. Left ventricular diastolic dysfunction grade 1. Trace tricuspid regurgitation. Tricuspid systolic velocities suggests peak right ventricular systolic pressure of 20 mmHg
[2016-08-19] MEDS: Morphine Sulfate 4mg/ml Inj IVP PRN (20:29)
[2016-08-19] MEDS ORDERED: Heparin 5000 units/ml inj SUBQ SCH (21:00)
[2016-08-20] VITALS (7 sets, daily range): BP systolic 89–125; BP diastolic 57–89
[2016-08-20] MEDS: D5NS 1,000 ML IV SCH ×4 (04:00→21:56)
[2016-08-20 07:37] LABS: BASOPHILS % (AUTO) 0.7 % (0.0-2.0); EOSINOPHILS % (AUTO) 2.4 % (0.0-3.0); LYMPHOCYTES % (AUTO) 30.5 % (20.0-45.0); MEAN CORPUSCULAR HEMOGLOBIN 32.4 PG (27.0-31.0); MEAN CORPUSCULAR HGB CONC 32.9 G/DL (32.0-36.0); MEAN CORPUSCULAR VOLUME 98 FL (80-99); MEAN PLATELET VOLUME 7.2 FL (6.5-10.1); MONOCYTES % (AUTO) 4.8 % (1.0-10.0); NEUTROPHILS % (AUTO) 61.5 % (45.0-75.0); PLATELET COUNT 162 K/UL (150-450); RED BLOOD COUNT 2.96 M/UL (4.70-6.10); RED CELL DISTRIBUTION WIDTH 14.3 % (11.6-14.8); WHITE BLOOD COUNT 8.6 K/UL (4.8-10.8)
[2016-08-20 07:50] LABS: ALANINE AMINOTRANSFERASE 5 U/L (3-41); ANION GAP 15 (5-15); ASPARTATE AMINO TRANSFERASE 9 U/L (5-40); CALCIUM 8.2 mg/dL (8.6-10.2); CARBON DIOXIDE 21 mEQ/L (20-30); CHLORIDE 104 mEQ/L (98-107); CREATININE 2.3 mg/dL (0.7-1.2); GLOMERULAR FILTRATION RATE 29.2 mL/min (>60); HEMOLYSIS 0; MAGNESIUM 1.9 mg/dL (1.7-2.5); PHOSPHORUS 3.1 mg/dL (2.5-4.8); POTASSIUM 4.6 mEQ/L (3.4-4.9); SODIUM 140 mEQ/L (135-145); TOTAL PROTEIN 5.9 g/dL (6.6-8.7)
[2016-08-20 08:05] LABS: INR 0.9 (0.9-1.1); PROTHROMBIN TIME 9.5 SEC (9.30-11.50)
[2016-08-20] MEDS: Morphine Sulfate 4mg/ml Inj IVP PRN ×2 (08:13→21:56)
[2016-08-20] MEDS: Cyproheptadine HCl 4mg tab ORAL SCH ×3 (09:01→17:27)
[2016-08-20] MEDS: Midodrine 10mg tab ORAL SCH ×3 (09:01→17:27)
[2016-08-20] MEDS: Heparin 5000 units/ml inj SUBQ SCH ×2 (09:03→22:03)
--- NOTE | 2016-08-20 09:41 | Infectious Diseases Prog Note ---
Assessment/Plan Assessment/Plan ASSESSMENT: 61 y/o male with: // Shock SP - off pressors ?iatrogenic r/o septic - Cx NGTD - trop(-) x1, UA(-), CXR NAF - TTE: EF 70-75%, grade I diastolic dysfunction, trace valvular disease // Afebrile without leukocytosis // ARF - improved // Metastatic prostate CA, on chemo // NKDA // Full Code PLAN: - ok to DC off of ABX from ID standpoint - f/u final cultures - monitor CBC, temperatures - monitor BMP Subjective Allergies: Coded Allergies: No Known Allergies (Unverified , 08/16/16) Subjective remains afebrile. no new complaint Objective Vital Signs Last 24 Hour Vital Signs Date Time Temp Pulse Resp B/P Pulse Ox O2 Delivery O2 Flow Rate FiO2 08/20/16 08:43 97.2 08/20/16 07:22 59 20 Room Air 21 08/20/16 04:00 97.2 62 20 104/71 99 Room Air 08/20/16 00:00 96.0 56 18 92/62 99 Room Air 08/19/16 20:00 96.8 61 18 103/66 100 Room Air 08/19/16 19:30 58 20 Room Air 21 08/19/16 16:00 97.8 60 20 90/58 97 Room Air 08/19/16 12:00 97.0 57 17 104/56 92 Room Air 08/19/16 11:38 56 Height (Feet): 6 Height (Inches): 1.00 Weight (Pounds): 219 General Appearance: no acute distress Respiratory/Chest: no respiratory distress Cardiovascular: normal rate, regular rhythm Abdomen: normal bowel sounds, soft, non tender, non distended Laboratory Tests Test 08/20/16 07:00 White Blood Count 8.6 K/UL (4.8-10.8) Red Blood Count 2.96 M/UL (4.70-6.10) L Hemoglobin 9.6 G/DL (14.2-18.0) L Hematocrit 29.0 % (42.0-52.0) L Mean Corpuscular Volume 98 FL (80-99) Mean Corpuscular Hemoglobin 32.4 PG (27.0-31.0) H Mean Corpuscular Hemoglobin Concent 32.9 G/DL (32.0-36.0) Red Cell Distribution Width 14.3 % (11.6-14.8) Platelet Count 162 K/UL (150-450) Mean Platelet Volume 7.2 FL (6.5-10.1) Neutrophils (%) (Auto) 61.5 % (45.0-75.0) Lymphocytes (%) (Auto) 30.5 % (20.0-45.0) Monocytes (%) (Auto) 4.8 % (1.0-10.0) Eosinophils (%) (Auto) 2.4 % (0.0-3.0) Basophils (%) (Auto) 0.7 % (0.0-2.0) Prothrombin Time 9.5 SEC (9.30-11.50) Prothromb Time International Ratio 0.9 (0.9-1.1) Activated Partial Thromboplast Time 32 SEC (23-33) Sodium Level 140 mEQ/L (135-145) Potassium Level 4.6 mEQ/L (3.4-4.9) Chloride Level 104 mEQ/L (98-107) Carbon Dioxide Level 21 mEQ/L (20-30) Anion Gap 15 (5-15) Blood Urea Nitrogen 21 mg/dL (7-23) Creatinine 2.3 mg/dL (0.7-1.2) H Estimat Glomerular Filtration Rate 29.2 mL/min (>60) Glucose Level 79 mg/dL (74-106) Calcium Level 8.2 mg/dL (8.6-10.2) L Phosphorus Level 3.1 mg/dL (2.5-4.8) Magnesium Level 1.9 mg/dL (1.7-2.5) Total Bilirubin < 0.2 mg/dL (0.0-1.2) Aspartate Amino Transf (AST/SGOT) 9 U/L (5-40) Alanine Aminotransferase (ALT/SGPT) 5 U/L (3-41) Alkaline Phosphatase 181 U/L (40-129) H Total Protein 5.9 g/dL (6.6-8.7) L Albumin 3.0 g/dL (3.5-5.2) L Globulin 2.9 g/dL Albumin/Globulin Ratio 1.0 (1.0-2.7) Current Medications Medications (Trade) Dose Ordered Sig/Yenny Route PRN Reason Start Time Stop Time Status Last Admin Dose Admin Acetaminophen (Tylenol) 650 mg Q4H PRN ORAL T>100.5 08/19/16 18:30 09/18/16 18:29 Albuterol/ Ipratropium (DuoNeb 0.5-3(2.5)mg/3ml) 3 ml Q4H PRN HHN Shortness of Breath 08/19/16 19:00 08/24/16 18:59 Cyproheptadine HCl (Periactin) 4 mg THREE TIMES A DAY ORAL 08/19/16 20:00 09/18/16 19:59 08/20/16 09:01 Dextrose (Dextrose 50%) STAT PRN IV Hypoglycemia 08/20/16 14:30 09/19/16 14:29 Dextrose/Sodium Chloride (D5ns) 1,000 ml @ 100 mls/hr Q10H IV 08/19/16 18:00 09/18/16 17:59 08/19/16 20:10 Heparin Sodium (Porcine) (Heparin 5000 units/ml) 5,000 units EVERY 12 HOURS SUBQ 08/19/16 21:00 09/18/16 20:59 08/20/16 09:03 Lorazepam 2 mg 2 mg Q4H PRN IV For Anxiety 08/19/16 20:15 08/26/16 20:14 08/19/16 22:36 Midodrine (Pro-Amatine) 10 mg THREE TIMES A DAY ORAL 08/19/16 19:30 09/18/16 19:29 08/20/16 09:01 Morphine Sulfate (Morphine Sulfate) 4 mg Q4H PRN IVP Severe Pain (Pain Scale 7-10) 08/19/16 19:00 08/26/16 18:59 08/20/16 08:13 Nitroglycerin (Ntg) 0.4 mg Q5M PRN SL Prn Chest Pain 08/19/16 17:45 09/18/16 17:44 Ondansetron HCl (Zofran) 4 mg Q6H PRN IVP Nausea & Vomiting 08/19/16 19:00 09/18/16 18:59 Polyethylene Glycol (Miralax) 17 gm DAILYPRN PRN ORAL Constipation 08/19/16 19:00 09/18/16 18:59 SIMONA GUPTA 21, 2017 09:41
--- NOTE | 2016-08-20 10:37 | Diagnostic Imaging Report ---
Indication: Acute renal failure, abnormal renal function test Technique: Grayscale and duplex images of the kidneys, retroperitoneum, and bladder were obtained. Comparison:None Findings: Right kidney measures 11.2 cm in length. Left kidney measures 9.5 cm in length. Both kidneys demonstrate normal echogenicity. No hydronephrosis. No focal abnormality. Normal inferior vena cava. Bladder is empty, contains a Guthrie catheter. Impression: Negative right of cirrhosis Empty bladder with Guthrie catheter.
--- NOTE | 2016-08-20 11:38 | Cardiology Report ---
APPROVED REPORT EKG Measurement Heart [id number] Normal sinus rhythm Right bundle branch block Septal infarct, age undetermined Abnormal ECG
--- NOTE | 2016-08-20 13:34 | Cardiology Progress Note ---
Assessment/Plan Assessment/Plan hypotension metastatic prostate Ca with mets to bone acute renal failure anemia Hx of HTN hypokalemia COPD bp still at tbetter cortisol was normal blood cx neg echo to be reviewed continue on iv hydration until ready to dc will need to avoid diuretics Subjective Cardiovascular: Denies: chest pain, lightheadedness, palpitations Respiratory: Denies: shortness of breath Gastrointestinal/Abdominal: Denies: abdominal pain Objective Last 24 Hour Vital Signs Date Time Temp Pulse Resp B/P Pulse Ox O2 Delivery O2 Flow Rate FiO2 08/20/16 09:48 87 125/89 93 Room Air 08/20/16 09:48 116/74 70 08/20/16 08:43 97.2 08/20/16 08:00 97.7 62 18 89/57 98 Room Air 08/20/16 07:22 59 20 Room Air 21 08/20/16 04:00 97.2 62 20 104/71 99 Room Air 08/20/16 00:00 96.0 56 18 92/62 99 Room Air 08/19/16 20:00 96.8 61 18 103/66 100 Room Air 08/19/16 19:30 58 20 Room Air 21 08/19/16 16:00 97.8 60 20 90/58 97 Room Air General Appearance: alert Neck: no JVD Cardiovascular: normal rate, regular rhythm Respiratory/Chest: lungs clear, normal breath sounds Abdomen: normal bowel sounds, non tender, soft Extremities: no swelling Intake and Output 08/19/16 08/20/16 19:00 07:00 Intake Total 1680 ml 1840 ml Output Total 640 ml 1500 ml Balance 1040 ml 340 ml Intake Oral 980 ml 740 ml IV Total 700 ml 1100 ml Output Urine Total 640 ml 1500 ml Laboratory Tests Test 08/20/16 07:00 White Blood Count 8.6 K/UL (4.8-10.8) Red Blood Count 2.96 M/UL (4.70-6.10) L Hemoglobin 9.6 G/DL (14.2-18.0) L Hematocrit 29.0 % (42.0-52.0) L Mean Corpuscular Volume 98 FL (80-99) Mean Corpuscular Hemoglobin 32.4 PG (27.0-31.0) H Mean Corpuscular Hemoglobin Concent 32.9 G/DL (32.0-36.0) Red Cell Distribution Width 14.3 % (11.6-14.8) Platelet Count 162 K/UL (150-450) Mean Platelet Volume 7.2 FL (6.5-10.1) Neutrophils (%) (Auto) 61.5 % (45.0-75.0) Lymphocytes (%) (Auto) 30.5 % (20.0-45.0) Monocytes (%) (Auto) 4.8 % (1.0-10.0) Eosinophils (%) (Auto) 2.4 % (0.0-3.0) Basophils (%) (Auto) 0.7 % (0.0-2.0) Prothrombin Time 9.5 SEC (9.30-11.50) Prothromb Time International Ratio 0.9 (0.9-1.1) Activated Partial Thromboplast Time 32 SEC (23-33) Sodium Level 140 mEQ/L (135-145) Potassium Level 4.6 mEQ/L (3.4-4.9) Chloride Level 104 mEQ/L (98-107) Carbon Dioxide Level 21 mEQ/L (20-30) Anion Gap 15 (5-15) Blood Urea Nitrogen 21 mg/dL (7-23) Creatinine 2.3 mg/dL (0.7-1.2) H Estimat Glomerular Filtration Rate 29.2 mL/min (>60) Glucose Level 79 mg/dL (74-106) Calcium Level 8.2 mg/dL (8.6-10.2) L Phosphorus Level 3.1 mg/dL (2.5-4.8) Magnesium Level 1.9 mg/dL (1.7-2.5) Total Bilirubin < 0.2 mg/dL (0.0-1.2) Aspartate Amino Transf (AST/SGOT) 9 U/L (5-40) Alanine Aminotransferase (ALT/SGPT) 5 U/L (3-41) Alkaline Phosphatase 181 U/L (40-129) H Total Protein 5.9 g/dL (6.6-8.7) L Albumin 3.0 g/dL (3.5-5.2) L Globulin 2.9 g/dL Albumin/Globulin Ratio 1.0 (1.0-2.7) MILAD DIANE Aug 20, 2016 13:34
--- NOTE | 2016-08-20 15:54 | Pulmonology Progress Note ---
Assessment/Plan Problems: (1) Shock (2) COPD (chronic obstructive pulmonary disease) (3) History of CVA (cerebrovascular accident) (4) ATN (acute tubular necrosis) (5) Prostate cancer metastatic to bone (6) GERD (gastroesophageal reflux disease) Assessment/Plan doing better still feeling week wants to go to [facility] for short term continue IV fluids check electrolytes monitor wbc off abx Subjective ROS Limited/Unobtainable: No Interval Events: feeling week Allergies: Coded Allergies: No Known Allergies (Unverified , 08/16/16) Objective Last 24 Hour Vital Signs Date Time Temp Pulse Resp B/P Pulse Ox O2 Delivery O2 Flow Rate FiO2 08/20/16 13:33 97.7 59 20 103/61 99 Room Air 08/20/16 09:48 87 125/89 93 Room Air 08/20/16 09:48 116/74 70 08/20/16 08:43 97.2 08/20/16 08:00 97.7 62 18 89/57 98 Room Air 08/20/16 07:22 59 20 Room Air 21 08/20/16 04:00 97.2 62 20 104/71 99 Room Air 08/20/16 00:00 96.0 56 18 92/62 99 Room Air 08/19/16 20:00 96.8 61 18 103/66 100 Room Air 08/19/16 19:30 58 20 Room Air 21 08/19/16 16:00 97.8 60 20 90/58 97 Room Air Intake and Output 08/19/16 08/20/16 19:00 07:00 Intake Total 1680 ml 1840 ml Output Total 640 ml 1500 ml Balance 1040 ml 340 ml Intake Oral 980 ml 740 ml IV Total 700 ml 1100 ml Output Urine Total 640 ml 1500 ml General Appearance: WD/WN HEENT: normocephalic, atraumatic Respiratory/Chest: chest wall non-tender, normal breath sounds Cardiovascular: normal peripheral pulses, regular rhythm Abdomen: normal bowel sounds, soft, non tender Genitourinary: normal external genitalia Extremities: no clubbing Skin: no lesions, no ulcers Laboratory Tests 08/20/16 07:00: White Blood Count 8.6, Red Blood Count 2.96L, Hemoglobin 9.6L, Hematocrit 29.0L , Mean Corpuscular Volume 98, Mean Corpuscular Hemoglobin 32.4H, Mean Corpuscular Hemoglobin Concent 32.9, Red Cell Distribution Width 14.3, Platelet Count 162, Mean Platelet Volume 7.2, Neutrophils (%) (Auto) 61.5, Lymphocytes (% ) (Auto) 30.5, Monocytes (%) (Auto) 4.8, Eosinophils (%) (Auto) 2.4, Basophils ( %) (Auto) 0.7, Prothrombin Time 9.5, Prothromb Time International Ratio 0.9, Activated Partial Thromboplast Time 32, Sodium Level 140, Potassium Level 4.6, Chloride Level 104, Carbon Dioxide Level 21, Anion Gap 15, Blood Urea Nitrogen 21, Creatinine 2.3H, Estimat Glomerular Filtration Rate 29.2, Glucose Level 79, Calcium Level 8.2L, Phosphorus Level 3.1, Magnesium Level 1.9, Total Bilirubin < 0.2, Aspartate Amino Transf (AST/SGOT) 9, Alanine Aminotransferase (ALT/SGPT) 5, Alkaline Phosphatase 181H, Total Protein 5.9L, Albumin 3.0L, Globulin 2.9, Albumin/Globulin Ratio 1.0 Current Medications Medications (Trade) Dose Ordered Sig/Yenny Route PRN Reason Start Time Stop Time Status Last Admin Dose Admin Acetaminophen (Tylenol) 650 mg Q4H PRN ORAL T>100.5 08/19/16 18:30 09/18/16 18:29 Albuterol/ Ipratropium (DuoNeb 0.5-3(2.5)mg/3ml) 3 ml Q4H PRN HHN Shortness of Breath 08/19/16 19:00 08/24/16 18:59 Cyproheptadine HCl (Periactin) 4 mg THREE TIMES A DAY ORAL 08/19/16 20:00 09/18/16 19:59 08/20/16 12:25 Dextrose (Dextrose 50%) STAT PRN IV Hypoglycemia 08/20/16 14:30 09/19/16 14:29 Dextrose/Sodium Chloride (D5ns) 1,000 ml @ 100 mls/hr Q10H IV 08/19/16 18:00 09/18/16 17:59 08/20/16 11:12 Heparin Sodium (Porcine) (Heparin 5000 units/ml) 5,000 units EVERY 12 HOURS SUBQ 08/19/16 21:00 09/18/16 20:59 08/20/16 09:03 Lorazepam 2 mg 2 mg Q4H PRN IV For Anxiety 08/19/16 20:15 08/26/16 20:14 08/19/16 22:36 Midodrine (Pro-Amatine) 10 mg THREE TIMES A DAY ORAL 08/19/16 19:30 09/18/16 19:29 08/20/16 12:25 Morphine Sulfate (Morphine Sulfate) 4 mg Q4H PRN IVP Severe Pain (Pain Scale 7-10) 08/19/16 19:00 08/26/16 18:59 08/20/16 08:13 Nitroglycerin (Ntg) 0.4 mg Q5M PRN SL Prn Chest Pain 08/19/16 17:45 09/18/16 17:44 Ondansetron HCl (Zofran) 4 mg Q6H PRN IVP Nausea & Vomiting 08/19/16 19:00 09/18/16 18:59 Polyethylene Glycol (Miralax) 17 gm DAILYPRN PRN ORAL Constipation 08/19/16 19:00 09/18/16 18:59 ZURI NORRIS Aug 20, 2016 15:54
--- NOTE | 2016-08-20 16:09 | General Progress Note ---
Assessment/Plan Status: stable Status Narrative Cr 2.3 Assessment/Plan status: Acute Renal Failure ( Zestril , HCTZ , ? Obstruction.....Hypotension h/o Prostate Ca with bone mets Hypotension Plan: on midodrine IV fluid- diaz Monitor renal parameters avoid nephrotoxics kidney GIACOMO- Right kidney measures 11.2 cm in length. Left kidney measures 9.5 cm in length. Both kidneys demonstrate normal echogenicity. No hydronephrosis. No focal abnormality. Normal inferior vena cava. Bladder is empty, contains a Diaz catheter. per orders Subjective ROS Limited/Unobtainable: No Constitutional: Reports: malaise Allergies: Coded Allergies: No Known Allergies (Unverified , 08/16/16) Objective Last 24 Hour Vital Signs Date Time Temp Pulse Resp B/P Pulse Ox O2 Delivery O2 Flow Rate FiO2 08/20/16 13:33 97.7 59 20 103/61 99 Room Air 08/20/16 09:48 87 125/89 93 Room Air 08/20/16 09:48 116/74 70 08/20/16 08:43 97.2 08/20/16 08:00 97.7 62 18 89/57 98 Room Air 08/20/16 07:22 59 20 Room Air 21 08/20/16 04:00 97.2 62 20 104/71 99 Room Air 08/20/16 00:00 96.0 56 18 92/62 99 Room Air 08/19/16 20:00 96.8 61 18 103/66 100 Room Air 08/19/16 19:30 58 20 Room Air 21 Intake and Output 08/19/16 08/20/16 19:00 07:00 Intake Total 1680 ml 1840 ml Output Total 640 ml 1500 ml Balance 1040 ml 340 ml Intake Oral 980 ml 740 ml IV Total 700 ml 1100 ml Output Urine Total 640 ml 1500 ml Laboratory Tests 08/20/16 07:00: White Blood Count 8.6, Red Blood Count 2.96L, Hemoglobin 9.6L, Hematocrit 29.0L , Mean Corpuscular Volume 98, Mean Corpuscular Hemoglobin 32.4H, Mean Corpuscular Hemoglobin Concent 32.9, Red Cell Distribution Width 14.3, Platelet Count 162, Mean Platelet Volume 7.2, Neutrophils (%) (Auto) 61.5, Lymphocytes (% ) (Auto) 30.5, Monocytes (%) (Auto) 4.8, Eosinophils (%) (Auto) 2.4, Basophils ( %) (Auto) 0.7, Prothrombin Time 9.5, Prothromb Time International Ratio 0.9, Activated Partial Thromboplast Time 32, Sodium Level 140, Potassium Level 4.6, Chloride Level 104, Carbon Dioxide Level 21, Anion Gap 15, Blood Urea Nitrogen 21, Creatinine 2.3H, Estimat Glomerular Filtration Rate 29.2, Glucose Level 79, Calcium Level 8.2L, Phosphorus Level 3.1, Magnesium Level 1.9, Total Bilirubin < 0.2, Aspartate Amino Transf (AST/SGOT) 9, Alanine Aminotransferase (ALT/SGPT) 5, Alkaline Phosphatase 181H, Total Protein 5.9L, Albumin 3.0L, Globulin 2.9, Albumin/Globulin Ratio 1.0 Height (Feet): 6 Height (Inches): 1.00 Weight (Pounds): 219 General Appearance: lethargic Cardiovascular: normal rate Objective other PE not changed YRIS VALDEZ Aug 20, 2016 16:09
[2016-08-20] MEDS ORDERED: D5NS 1000ml IV ONE (16:39)
--- NOTE | 2016-08-20 23:21 | Diagnostic Imaging Report ---
APPROVED REPORT CPT Code: 97303 Present Symptoms Upper Extremity Edema: Right Comments: Hx of PICC line (upper right arm) BILATERAL UPPER EXTREMITY (Deep venous system): Imaging reveals patency of the internal jugular, subclavian, axillary and brachial veins. Doppler indicates normal spontaneous flow within these venous segments. SUPERFICIAL VENOUS SYSTEM: Imaging also reveals patency of the right cephalic and left basilic veins. The right basilic and left cephalic veins were not well visualized.
[2016-08-21] VITALS: BP 98/62
[2016-08-21] MEDS: Morphine Sulfate 4mg/ml Inj IVP PRN ×4 (03:06→21:43)
[2016-08-21 04:00] VITALS: BP 124/78
[2016-08-21 07:05] LABS: BASOPHILS % (AUTO) 0.4 % (0.0-2.0); LYMPHOCYTES % (AUTO) 22.2 % (20.0-45.0); MEAN CORPUSCULAR HEMOGLOBIN 32.1 PG (27.0-31.0); MEAN CORPUSCULAR HGB CONC 32.6 G/DL (32.0-36.0); MEAN CORPUSCULAR VOLUME 99 FL (80-99); MEAN PLATELET VOLUME 6.8 FL (6.5-10.1); MONOCYTES % (AUTO) 4.6 % (1.0-10.0); NEUTROPHILS % (AUTO) 70.9 % (45.0-75.0); PLATELET COUNT 166 K/UL (150-450); RED BLOOD COUNT 2.91 M/UL (4.70-6.10); RED CELL DISTRIBUTION WIDTH 15.1 % (11.6-14.8); WHITE BLOOD COUNT 11.3 K/UL (4.8-10.8)
[2016-08-21 07:40] LABS: ALANINE AMINOTRANSFERASE 5 U/L (3-41); ALBUMIN/GLOBULIN RATIO 0.9 (1.0-2.7); ANION GAP 16 (5-15); ASPARTATE AMINO TRANSFERASE 9 U/L (5-40); CALCIUM 8.1 mg/dL (8.6-10.2); CARBON DIOXIDE 21 mEQ/L (20-30); CHLORIDE 105 mEQ/L (98-107); CREATININE 2.1 mg/dL (0.7-1.2); GLOMERULAR FILTRATION RATE 32.4 mL/min (>60); HEMOLYSIS 3; MAGNESIUM 1.7 mg/dL (1.7-2.5); PHOSPHORUS 2.8 mg/dL (2.5-4.8); POTASSIUM 4.2 mEQ/L (3.4-4.9); SODIUM 142 mEQ/L (135-145); TOTAL PROTEIN 5.5 g/dL (6.6-8.7)
[2016-08-21 08:00] VITALS: BP 103/72
[2016-08-21] MEDS: Cyproheptadine HCl 4mg tab ORAL SCH ×2 (08:16→12:20)
[2016-08-21] MEDS: Midodrine 10mg tab ORAL SCH ×3 (08:16→18:13)
[2016-08-21] MEDS: D5NS 1,000 ML IV SCH ×2 (08:20→21:44)
[2016-08-21] MEDS: Heparin 5000 units/ml inj SUBQ SCH ×2 (08:20→21:53)
--- NOTE | 2016-08-21 09:27 | Infectious Diseases Prog Note ---
Assessment/Plan Assessment/Plan ASSESSMENT: 61 y/o male with: // Hypotension SP - off pressors ?iatrogenic r/o septic - Cx NGTD - trop(-) x1, UA(-), CXR NAF - TTE: EF 70-75%, grade I diastolic dysfunction, trace valvular disease // Acute mild leukocytosis, afebrile // ARF - improved // Metastatic prostate CA, on chemo // NKDA // Full Code PLAN: - ok to DC off of ABX from ID standpoint - f/u final cultures - monitor CBC, temperatures - monitor BMP Subjective Allergies: Coded Allergies: No Known Allergies (Unverified , 08/16/16) Subjective remains afebrile. c/o weakness Objective Vital Signs Last 24 Hour Vital Signs Date Time Temp Pulse Resp B/P Pulse Ox O2 Delivery O2 Flow Rate FiO2 08/21/16 08:00 97.7 62 18 103/72 97 Room Air 08/21/16 04:00 97.6 18 124/78 99 Room Air 08/21/16 00:00 97.3 60 18 98/62 99 Room Air 08/20/16 20:00 97.9 60 18 120/70 99 Room Air 08/20/16 19:30 60 20 Room Air 21 08/20/16 16:26 98.1 53 18 107/69 100 Room Air 08/20/16 13:33 97.7 59 20 103/61 99 Room Air 08/20/16 09:48 87 125/89 93 Room Air 08/20/16 09:48 116/74 70 Height (Feet): 6 Height (Inches): 1.00 Weight (Pounds): 219 General Appearance: no acute distress Respiratory/Chest: no respiratory distress Cardiovascular: normal rate, regular rhythm Abdomen: normal bowel sounds, soft, non tender, non distended Laboratory Tests Test 08/21/16 06:15 White Blood Count 11.3 K/UL (4.8-10.8) H Red Blood Count 2.91 M/UL (4.70-6.10) L Hemoglobin 9.4 G/DL (14.2-18.0) L Hematocrit 28.7 % (42.0-52.0) L Mean Corpuscular Volume 99 FL (80-99) Mean Corpuscular Hemoglobin 32.1 PG (27.0-31.0) H Mean Corpuscular Hemoglobin Concent 32.6 G/DL (32.0-36.0) Red Cell Distribution Width 15.1 % (11.6-14.8) H Platelet Count 166 K/UL (150-450) Mean Platelet Volume 6.8 FL (6.5-10.1) Neutrophils (%) (Auto) 70.9 % (45.0-75.0) Lymphocytes (%) (Auto) 22.2 % (20.0-45.0) Monocytes (%) (Auto) 4.6 % (1.0-10.0) Eosinophils (%) (Auto) 2.0 % (0.0-3.0) Basophils (%) (Auto) 0.4 % (0.0-2.0) Sodium Level 142 mEQ/L (135-145) Potassium Level 4.2 mEQ/L (3.4-4.9) Chloride Level 105 mEQ/L (98-107) Carbon Dioxide Level 21 mEQ/L (20-30) Anion Gap 16 (5-15) H Blood Urea Nitrogen 18 mg/dL (7-23) Creatinine 2.1 mg/dL (0.7-1.2) H Estimat Glomerular Filtration Rate 32.4 mL/min (>60) Glucose Level 86 mg/dL (74-106) Calcium Level 8.1 mg/dL (8.6-10.2) L Phosphorus Level 2.8 mg/dL (2.5-4.8) Magnesium Level 1.7 mg/dL (1.7-2.5) Total Bilirubin < 0.2 mg/dL (0.0-1.2) Aspartate Amino Transf (AST/SGOT) 9 U/L (5-40) Alanine Aminotransferase (ALT/SGPT) 5 U/L (3-41) Alkaline Phosphatase 171 U/L (40-129) H Total Protein 5.5 g/dL (6.6-8.7) L Albumin 2.7 g/dL (3.5-5.2) L Globulin 2.8 g/dL Albumin/Globulin Ratio 0.9 (1.0-2.7) L Current Medications Medications (Trade) Dose Ordered Sig/Yenny Route PRN Reason Start Time Stop Time Status Last Admin Dose Admin Acetaminophen (Tylenol) 650 mg Q4H PRN ORAL T>100.5 3/20/17 18:30 09/18/16 18:29 Albuterol/ Ipratropium (DuoNeb 0.5-3(2.5)mg/3ml) 3 ml Q4H PRN HHN Shortness of Breath 08/19/16 19:00 08/24/16 18:59 Cyproheptadine HCl (Periactin) 4 mg THREE TIMES A DAY ORAL 08/19/16 20:00 09/18/16 19:59 08/21/16 08:16 Dextrose (Dextrose 50%) STAT PRN IV Hypoglycemia 08/20/16 14:30 09/19/16 14:29 Dextrose/Sodium Chloride (D5ns) 1,000 ml @ 100 mls/hr Q10H IV 08/19/16 18:00 09/18/16 17:59 08/21/16 08:20 Heparin Sodium (Porcine) (Heparin 5000 units/ml) 5,000 units EVERY 12 HOURS SUBQ 08/19/16 21:00 09/18/16 20:59 08/21/16 08:20 Lorazepam 2 mg 2 mg Q4H PRN IV For Anxiety 08/19/16 20:15 08/26/16 20:14 08/19/16 22:36 Midodrine (Pro-Amatine) 10 mg THREE TIMES A DAY ORAL 08/19/16 19:30 09/18/16 19:29 08/21/16 08:16 Morphine Sulfate (Morphine Sulfate) 4 mg Q4H PRN IVP Severe Pain (Pain Scale 7-10) 08/19/16 19:00 08/26/16 18:59 08/21/16 08:17 Nitroglycerin (Ntg) 0.4 mg Q5M PRN SL Prn Chest Pain 08/19/16 17:45 09/18/16 17:44 Ondansetron HCl (Zofran) 4 mg Q6H PRN IVP Nausea & Vomiting 08/19/16 19:00 09/18/16 18:59 Polyethylene Glycol (Miralax) 17 gm DAILYPRN PRN ORAL Constipation 08/19/16 19:00 09/18/16 18:59 SIMONA GUPTA Aug 21, 2016 09:27
[2016-08-21 12:00] VITALS: BP 104/67
--- NOTE | 2016-08-21 12:46 | General Progress Note ---
Assessment/Plan Status: stable Status Narrative Cr lower Assessment/Plan status: Acute Renal Failure ( Zestril , HCTZ , ? Obstruction.....Hypotension h/o Prostate Ca with bone mets Hypotension Plan: on midodrine IV fluid- will DC diaz Monitor renal parameters avoid nephrotoxics kidney GIACOMO- Right kidney measures 11.2 cm in length. Left kidney measures 9.5 cm in length. Both kidneys demonstrate normal echogenicity. No hydronephrosis. No focal abnormality. Normal inferior vena cava. Bladder is empty, contains a Diaz catheter. per orders Subjective ROS Limited/Unobtainable: No Constitutional: Reports: malaise Allergies: Coded Allergies: No Known Allergies (Unverified , 08/16/16) Objective Last 24 Hour Vital Signs Date Time Temp Pulse Resp B/P Pulse Ox O2 Delivery O2 Flow Rate FiO2 08/21/16 12:00 98.3 60 20 104/67 93 Room Air 08/21/16 08:00 97.7 62 18 103/72 97 Room Air 08/21/16 07:58 62 18 Room Air 08/21/16 04:00 97.6 18 124/78 99 Room Air 08/21/16 00:00 97.3 60 18 98/62 99 Room Air 08/20/16 20:00 97.9 60 18 120/70 99 Room Air 08/20/16 19:30 60 20 Room Air 08/20/16 16:26 98.1 53 18 107/69 100 Room Air 08/20/16 13:33 97.7 59 20 103/61 99 Room Air Intake and Output 08/20/16 08/21/16 19:00 07:00 Intake Total 1250 ml 1300 ml Output Total 700 ml 1400 ml Balance 550 ml -100 ml Intake Oral 450 ml 600 ml IV Total 800 ml 700 ml Output Urine Total 700 ml 1400 ml Laboratory Tests 08/21/16 06:15: White Blood Count 11.3H, Red Blood Count 2.91L, Hemoglobin 9.4L, Hematocrit 28.7L, Mean Corpuscular Volume 99, Mean Corpuscular Hemoglobin 32.1H, Mean Corpuscular Hemoglobin Concent 32.6, Red Cell Distribution Width 15.1H, Platelet Count 166, Mean Platelet Volume 6.8, Neutrophils (%) (Auto) 70.9, Lymphocytes (%) (Auto) 22.2, Monocytes (%) (Auto) 4.6, Eosinophils (%) (Auto) 2.0, Basophils (%) (Auto) 0.4, Sodium Level 142, Potassium Level 4.2, Chloride Level 105, Carbon Dioxide Level 21, Anion Gap 16H, Blood Urea Nitrogen 18, Creatinine 2.1H, Estimat Glomerular Filtration Rate 32.4, Glucose Level 86, Calcium Level 8.1L, Phosphorus Level 2.8, Magnesium Level 1.7, Total Bilirubin < 0.2, Aspartate Amino Transf (AST/SGOT) 9, Alanine Aminotransferase (ALT/SGPT) 5, Alkaline Phosphatase 171H, Total Protein 5.5L, Albumin 2.7L, Globulin 2.8, Albumin/Globulin Ratio 0.9L Height (Feet): 6 Height (Inches): 1.00 Weight (Pounds): 219 General Appearance: no apparent distress Objective other PE not changed YRIS VALDEZ Aug 21, 2016 12:46
[2016-08-21] MEDS ORDERED: Morphine Sulfate 4mg/ml Inj IVP PRN (13:00)
[2016-08-21] MEDS ORDERED: Morphine Sulfate 2mg/ml Inj IVP PRN (13:00)
[2016-08-21] MEDS: Dronabinol 2.5mg Cap ORAL SCH ×2 (13:49→18:12)
[2016-08-21] MEDS ORDERED: D5NS 1000ml IV ONE (15:28)
[2016-08-21 16:00] VITALS: BP 123/80
[2016-08-21] MEDS ORDERED: LORazepam 0.5mg tab ORAL PRN (17:45)
[2016-08-21 20:00] VITALS: BP 106/66
[2016-08-21] MEDS: Tamsulosin 0.4mg cap ORAL SCH (21:44)
--- NOTE | 2016-08-21 22:18 | Pulmonology Progress Note ---
Assessment/Plan Problems: (1) Shock (2) COPD (chronic obstructive pulmonary disease) (3) History of CVA (cerebrovascular accident) (4) ATN (acute tubular necrosis) (5) Prostate cancer metastatic to bone (6) GERD (gastroesophageal reflux disease) Assessment/Plan still c/o of lots of pian doing better still feeling week wants to go to [facility] for short term continue IV fluids check electrolytes monitor wbc off abx increase dose of narcotics Subjective ROS Limited/Unobtainable: No Constitutional: Reports: no symptoms Allergies: Coded Allergies: No Known Allergies (Unverified , 08/16/16) Objective Last 24 Hour Vital Signs Date Time Temp Pulse Resp B/P Pulse Ox O2 Delivery O2 Flow Rate FiO2 08/21/16 20:10 60 18 Room Air 21 08/21/16 20:00 98.1 59 16 106/66 98 Room Air 08/21/16 19:00 98.1 08/21/16 16:00 98.1 55 17 123/80 99 Room Air 08/21/16 12:00 98.3 60 20 104/67 93 Room Air 08/21/16 08:00 97.7 62 18 103/72 97 Room Air 08/21/16 07:58 62 18 Room Air 21 08/21/16 04:00 97.6 18 124/78 99 Room Air 08/21/16 00:00 97.3 60 18 98/62 99 Room Air Intake and Output 08/20/16 08/21/16 19:00 07:00 Intake Total 1250 ml 1300 ml Output Total 700 ml 1400 ml Balance 550 ml -100 ml Intake Oral 450 ml 600 ml IV Total 800 ml 700 ml Output Urine Total 700 ml 1400 ml General Appearance: WD/WN HEENT: normocephalic Respiratory/Chest: chest wall non-tender Cardiovascular: normal peripheral pulses, normal rate Abdomen: normal bowel sounds Extremities: no cyanosis Laboratory Tests 08/21/16 06:15: White Blood Count 11.3H, Red Blood Count 2.91L, Hemoglobin 9.4L, Hematocrit 28.7L, Mean Corpuscular Volume 99, Mean Corpuscular Hemoglobin 32.1H, Mean Corpuscular Hemoglobin Concent 32.6, Red Cell Distribution Width 15.1H, Platelet Count 166, Mean Platelet Volume 6.8, Neutrophils (%) (Auto) 70.9, Lymphocytes (%) (Auto) 22.2, Monocytes (%) (Auto) 4.6, Eosinophils (%) (Auto) 2.0, Basophils (%) (Auto) 0.4, Sodium Level 142, Potassium Level 4.2, Chloride Level 105, Carbon Dioxide Level 21, Anion Gap 16H, Blood Urea Nitrogen 18, Creatinine 2.1H, Estimat Glomerular Filtration Rate 32.4, Glucose Level 86, Calcium Level 8.1L, Phosphorus Level 2.8, Magnesium Level 1.7, Total Bilirubin < 0.2, Aspartate Amino Transf (AST/SGOT) 9, Alanine Aminotransferase (ALT/SGPT) 5, Alkaline Phosphatase 171H, Total Protein 5.5L, Albumin 2.7L, Globulin 2.8, Albumin/Globulin Ratio 0.9L Current Medications Medications (Trade) Dose Ordered Sig/Yenny Route PRN Reason Start Time Stop Time Status Last Admin Dose Admin Acetaminophen (Tylenol) 650 mg Q4H PRN ORAL T>100.5 08/19/16 18:30 09/18/16 18:29 Acetaminophen/ Hydrocodone Bitart ([place] 5/325) 1 tab Q4H PRN ORAL Moderate Pain (Pain Scale 4-6) 08/21/16 13:00 08/28/16 12:59 Albuterol/ Ipratropium (DuoNeb 0.5-3(2.5)mg/3ml) 3 ml Q4H PRN HHN Shortness of Breath 08/19/16 19:00 08/24/16 18:59 Dextrose (Dextrose 50%) STAT PRN IV Hypoglycemia 08/20/16 14:30 09/19/16 14:29 Dextrose/Sodium Chloride (D5ns) 1,000 ml @ 100 mls/hr Q10H IV 08/19/16 18:00 09/18/16 17:59 08/21/16 21:44 Dronabinol (Marinol) 2.5 mg TID ORAL 08/21/16 13:00 09/20/16 12:59 08/21/16 18:12 Heparin Sodium (Porcine) (Heparin 5000 units/ml) 5,000 units EVERY 12 HOURS SUBQ 08/19/16 21:00 09/18/16 20:59 08/21/16 21:53 Lorazepam (Ativan) 0.5 mg TIDPRN PRN ORAL For Anxiety 08/21/16 17:45 08/28/16 17:44 Midodrine (Pro-Amatine) 10 mg THREE TIMES A DAY ORAL 08/19/16 19:30 09/18/16 19:29 08/21/16 18:13 Morphine Sulfate (Morphine Sulfate) 4 mg EVERY 3 HOURS PRN IVP Severe Pain (Pain Scale 7-10) 08/21/16 18:00 08/28/16 17:59 08/21/16 21:43 Nitroglycerin (Ntg) 0.4 mg Q5M PRN SL Prn Chest Pain 08/19/16 17:45 09/18/16 17:44 Ondansetron HCl (Zofran) 4 mg Q6H PRN IVP Nausea & Vomiting 08/19/16 19:00 09/18/16 18:59 Polyethylene Glycol (Miralax) 17 gm DAILYPRN PRN ORAL Constipation 08/19/16 19:00 09/18/16 18:59 Tamsulosin HCl (Flomax) 0.4 mg BEDTIME ORAL 08/21/16 21:00 09/20/16 20:59 08/21/16 21:44 ZURI NORRIS Aug 21, 2016 22:18
[2016-08-22 00:29] VITALS: BP 98/62
[2016-08-22] MEDS: Morphine Sulfate 4mg/ml Inj IVP PRN ×2 (03:26→09:05)
[2016-08-22 04:00] VITALS: BP 98/66
[2016-08-22] MEDS: D5NS 1,000 ML IV SCH ×2 (05:39→16:10)
[2016-08-22 08:11] VITALS: BP 146/90
[2016-08-22] MEDS: Midodrine 10mg tab ORAL SCH ×3 (08:31→17:53)
[2016-08-22] MEDS: Dronabinol 2.5mg Cap ORAL SCH ×3 (08:31→17:53)
[2016-08-22] MEDS: Heparin 5000 units/ml inj SUBQ SCH ×2 (08:33→20:20)
--- NOTE | 2016-08-22 10:29 | Infectious Diseases Prog Note ---
Assessment/Plan Assessment/Plan ASSESSMENT: 61 y/o male with: // Hypotension SP - off pressors ?iatrogenic r/o septic - Cx(-) - trop(-) x1, UA(-), CXR NAF - TTE: EF 70-75%, grade I diastolic dysfunction, trace valvular disease // Acute mild leukocytosis - no repeat CBC, afebrile // Deconditioning // ARF - improved // Metastatic prostate CA, on chemo // NKDA // Full Code PLAN: - ok to DC off of ABX from ID standpoint - f/u final cultures - monitor CBC, temperatures - monitor BMP - PT Subjective Allergies: Coded Allergies: No Known Allergies (Unverified , 08/16/16) Subjective remains afebrile. c/o weakness DC planning ongoing Objective Vital Signs Last 24 Hour Vital Signs Date Time Temp Pulse Resp B/P Pulse Ox O2 Delivery O2 Flow Rate FiO2 08/22/16 08:11 97.7 82 20 146/90 97 Room Air 08/22/16 04:00 97.2 64 19 98/66 97 Room Air 08/22/16 00:29 98.1 64 21 98/62 98 Room Air 08/21/16 22:13 98.1 08/21/16 20:10 60 18 Room Air 21 08/21/16 20:00 98.1 59 16 106/66 98 Room Air 08/21/16 16:00 98.1 55 17 123/80 99 Room Air 08/21/16 12:00 98.3 60 20 104/67 93 Room Air Height (Feet): 6 Height (Inches): 1.00 Weight (Pounds): 219 General Appearance: no acute distress Respiratory/Chest: no respiratory distress Cardiovascular: normal rate, regular rhythm Abdomen: normal bowel sounds, soft, non tender, non distended Current Medications Medications (Trade) Dose Ordered Sig/Yenny Route PRN Reason Start Time Stop Time Status Last Admin Dose Admin Acetaminophen (Tylenol) 650 mg Q4H PRN ORAL T>100.5 08/19/16 18:30 09/18/16 18:29 Acetaminophen/ Hydrocodone Bitart ([place] 5/325) 1 tab Q4H PRN ORAL Moderate Pain (Pain Scale 4-6) 08/21/16 13:00 08/28/16 12:59 Albuterol/ Ipratropium (DuoNeb 0.5-3(2.5)mg/3ml) 3 ml Q4H PRN HHN Shortness of Breath 08/19/16 19:00 08/24/16 18:59 Dextrose (Dextrose 50%) STAT PRN IV Hypoglycemia 08/20/16 14:30 09/19/16 14:29 Dextrose/Sodium Chloride (D5ns) 1,000 ml @ 100 mls/hr Q10H IV 08/19/16 18:00 09/18/16 17:59 08/22/16 05:39 Dronabinol (Marinol) 2.5 mg TID ORAL 08/21/16 13:00 09/20/16 12:59 08/22/16 08:31 Heparin Sodium (Porcine) (Heparin 5000 units/ml) 5,000 units EVERY 12 HOURS SUBQ 08/19/16 21:00 09/18/16 20:59 08/22/16 08:33 Lorazepam (Ativan) 0.5 mg TIDPRN PRN ORAL For Anxiety 08/21/16 17:45 08/28/16 17:44 Midodrine (Pro-Amatine) 10 mg THREE TIMES A DAY ORAL 08/19/16 19:30 09/18/16 19:29 08/22/16 08:31 Morphine Sulfate (Morphine Sulfate) 4 mg EVERY 3 HOURS PRN IVP Severe Pain (Pain Scale 7-10) 08/21/16 18:00 08/28/16 17:59 08/22/16 03:26 Nitroglycerin (Ntg) 0.4 mg Q5M PRN SL Prn Chest Pain 08/19/16 17:45 09/18/16 17:44 Ondansetron HCl (Zofran) 4 mg Q6H PRN IVP Nausea & Vomiting 08/19/16 19:00 09/18/16 18:59 Polyethylene Glycol (Miralax) 17 gm DAILYPRN PRN ORAL Constipation 08/19/16 19:00 09/18/16 18:59 Tamsulosin HCl (Flomax) 0.4 mg BEDTIME ORAL 08/21/16 21:00 09/20/16 20:59 08/21/16 21:44 SIMONA GUPTA Aug 22, 2016 10:29
[2016-08-22] MEDS: Norco 5mg/325mg tab ORAL PRN ×2 (13:30→20:18)
--- NOTE | 2016-08-22 17:09 | General Progress Note ---
Assessment/Plan Status: stable Assessment/Plan status: Acute Renal Failure ( Zestril , HCTZ , ? Obstruction.....Hypotension h/o Prostate Ca with bone mets Hypotension Plan: no labs today on midodrine IV fluid- will DC diaz Monitor renal parameters avoid nephrotoxics kidney GIACOMO- Right kidney measures 11.2 cm in length. Left kidney measures 9.5 cm in length. Both kidneys demonstrate normal echogenicity. No hydronephrosis. No focal abnormality. Normal inferior vena cava. Bladder is empty, contains a Diaz catheter. per orders Subjective ROS Limited/Unobtainable: No Constitutional: Reports: malaise Allergies: Coded Allergies: No Known Allergies (Unverified , 08/16/16) Objective Last 24 Hour Vital Signs Date Time Temp Pulse Resp B/P Pulse Ox O2 Delivery O2 Flow Rate FiO2 08/22/16 08:11 97.7 82 20 146/90 97 Room Air 08/22/16 07:14 63 20 Room Air 08/22/16 04:00 97.2 64 19 98/66 97 Room Air 08/22/16 00:29 98.1 64 21 98/62 98 Room Air 08/21/16 22:13 98.1 08/21/16 20:10 60 18 Room Air 21 08/21/16 20:00 98.1 59 16 106/66 98 Room Air Intake and Output 08/21/16 08/22/16 19:00 07:00 Intake Total 1960 ml 1240 ml Output Total 1000 ml 500 ml Balance 960 ml 740 ml Intake Oral 860 ml 240 ml IV Total 1100 ml 1000 ml Output Urine Total 1000 ml 500 ml Height (Feet): 6 Height (Inches): 1.00 Weight (Pounds): 219 General Appearance: no apparent distress Objective other PE not changed YRIS VALDEZ Aug 22, 2016 17:09
[2016-08-22 20:00] VITALS: BP 126/76
[2016-08-22] MEDS: Tamsulosin 0.4mg cap ORAL SCH (20:17)
--- NOTE | 2016-08-22 23:02 | Pulmonology Progress Note ---
Assessment/Plan Problems: (1) Shock (2) COPD (chronic obstructive pulmonary disease) (3) History of CVA (cerebrovascular accident) (4) ATN (acute tubular necrosis) (5) Prostate cancer metastatic to bone (6) GERD (gastroesophageal reflux disease) Assessment/Plan still c/o of lots of pian doing better still feeling week wants to go to [facility] term continue IV fluids check electrolytes monitor wbc off abx increase dose of narcotics Subjective ROS Limited/Unobtainable: Yes Respiratory: Reports: dyspnea at rest, productive cough, shortness of breath, sputum Allergies: Coded Allergies: No Known Allergies (Unverified , 08/16/16) Objective Last 24 Hour Vital Signs Date Time Temp Pulse Resp B/P Pulse Ox O2 Delivery O2 Flow Rate FiO2 08/22/16 20:16 70 18 Room Air 21 08/22/16 20:00 97.7 55 18 126/76 99 Room Air 08/22/16 08:11 97.7 82 20 146/90 97 Room Air 08/22/16 07:14 63 20 Room Air 08/22/16 04:00 97.2 64 19 98/66 97 Room Air 08/22/16 00:29 98.1 64 21 98/62 98 Room Air Intake and Output 08/21/16 08/22/16 19:00 07:00 Intake Total 1960 ml 1240 ml Output Total 1000 ml 500 ml Balance 960 ml 740 ml Intake Oral 860 ml 240 ml IV Total 1100 ml 1000 ml Output Urine Total 1000 ml 500 ml General Appearance: no acute distress HEENT: normocephalic, atraumatic, PERRL Respiratory/Chest: chest wall non-tender, decreased breath sounds, accessory muscle use, rhonchi, expiratory wheezing Cardiovascular: normal peripheral pulses, normal rate, regular rhythm Abdomen: normal bowel sounds, soft, non tender, no organomegaly Genitourinary: normal external genitalia Extremities: no cyanosis Skin: no rash, no lesions Neurologic/Psychiatric: responsive, abnormal CN, disoriented, aphasia Current Medications Medications (Trade) Dose Ordered Sig/Yenny Route PRN Reason Start Time Stop Time Status Last Admin Dose Admin Acetaminophen (Tylenol) 650 mg Q4H PRN ORAL T>100.5 08/19/16 18:30 09/18/16 18:29 Acetaminophen/ Hydrocodone Bitart ([place] 5/325) 1 tab Q4H PRN ORAL Moderate Pain (Pain Scale 4-6) 08/21/16 13:00 08/28/16 12:59 08/22/16 20:18 Albuterol/ Ipratropium (DuoNeb 0.5-3(2.5)mg/3ml) 3 ml Q4H PRN HHN Shortness of Breath 08/19/16 19:00 08/24/16 18:59 Dextrose (Dextrose 50%) STAT PRN IV Hypoglycemia 08/20/16 14:30 09/19/16 14:29 Dextrose/Sodium Chloride (D5ns) 1,000 ml @ 100 mls/hr Q10H IV 08/19/16 18:00 09/18/16 17:59 08/22/16 16:10 Dronabinol (Marinol) 2.5 mg TID ORAL 08/21/16 13:00 09/20/16 12:59 08/22/16 17:53 Heparin Sodium (Porcine) (Heparin 5000 units/ml) 5,000 units EVERY 12 HOURS SUBQ 08/19/16 21:00 09/18/16 20:59 08/22/16 20:20 Lorazepam (Ativan) 0.5 mg TIDPRN PRN ORAL For Anxiety 08/21/16 17:45 08/28/16 17:44 Midodrine (Pro-Amatine) 10 mg THREE TIMES A DAY ORAL 08/19/16 19:30 09/18/16 19:29 08/22/16 17:53 Morphine Sulfate (Morphine Sulfate) 4 mg EVERY 3 HOURS PRN IVP Severe Pain (Pain Scale 7-10) 08/21/16 18:00 08/28/16 17:59 08/22/16 09:05 Nitroglycerin (Ntg) 0.4 mg Q5M PRN SL Prn Chest Pain 08/19/16 17:45 09/18/16 17:44 Ondansetron HCl (Zofran) 4 mg Q6H PRN IVP Nausea & Vomiting 08/19/16 19:00 09/18/16 18:59 08/22/16 19:23 Polyethylene Glycol (Miralax) 17 gm DAILYPRN PRN ORAL Constipation 08/19/16 19:00 09/18/16 18:59 Tamsulosin HCl (Flomax) 0.4 mg BEDTIME ORAL 08/21/16 21:00 09/20/16 20:59 08/22/16 20:17 ZURI NORRIS Aug 22, 2016 23:02
[2016-08-23] VITALS: BP 106/69
[2016-08-23] MEDS: Norco 5mg/325mg tab ORAL PRN ×2 (00:20→19:55)
[2016-08-23] MEDS: D5NS 1,000 ML IV SCH ×3 (02:00→21:57)
[2016-08-23 04:00] VITALS: BP 105/74
[2016-08-23 05:28] LABS: BASOPHILS % (AUTO) 0.4 % (0.0-2.0); EOSINOPHILS % (AUTO) 2.5 % (0.0-3.0); LYMPHOCYTES % (AUTO) 23.8 % (20.0-45.0); MEAN CORPUSCULAR HEMOGLOBIN 32.2 PG (27.0-31.0); MEAN CORPUSCULAR HGB CONC 32.7 G/DL (32.0-36.0); MEAN CORPUSCULAR VOLUME 99 FL (80-99); MEAN PLATELET VOLUME 7.8 FL (6.5-10.1); MONOCYTES % (AUTO) 5.1 % (1.0-10.0); NEUTROPHILS % (AUTO) 68.3 % (45.0-75.0); PLATELET COUNT 128 K/UL (150-450); RED BLOOD COUNT 2.68 M/UL (4.70-6.10); RED CELL DISTRIBUTION WIDTH 14.6 % (11.6-14.8); WHITE BLOOD COUNT 8.2 K/UL (4.8-10.8)
[2016-08-23 05:50] LABS: ALBUMIN/GLOBULIN RATIO 1.1 (1.0-2.7); CALCIUM 8.2 mg/dL (8.6-10.2); CREATININE 1.7 mg/dL (0.7-1.2); CRP QUANT 2.2 mg/dL (< 0.5); GLOMERULAR FILTRATION RATE 41.3 mL/min (>60); MAGNESIUM 1.5 mg/dL (1.7-2.5); PHOSPHORUS 2.8 mg/dL (2.5-4.8); POTASSIUM 3.8 mEQ/L (3.4-4.9); TOTAL PROTEIN 5.8 g/dL (6.6-8.7)
[2016-08-23 08:00] VITALS: BP 121/87
[2016-08-23] MEDS: Heparin 5000 units/ml inj SUBQ SCH ×2 (09:00→21:00)
[2016-08-23] MEDS: Dronabinol 2.5mg Cap ORAL SCH ×3 (09:38→19:54)
[2016-08-23] MEDS: Midodrine 10mg tab ORAL SCH (09:38)
[2016-08-23] MEDS: Morphine Sulfate 4mg/ml Inj IVP PRN ×2 (09:46→13:38)
--- NOTE | 2016-08-23 09:57 | Infectious Diseases Prog Note ---
Assessment/Plan Assessment/Plan ASSESSMENT: 61 y/o male with: // Hypotension SP - off pressors ?iatrogenic r/o septic - Cx(-) - trop(-) x1, UA(-), CXR NAF - TTE: EF 70-75%, grade I diastolic dysfunction, trace valvular disease // Acute mild leukocytosis - resolved, afebrile // Deconditioning // ARF - improved // Metastatic prostate CA, on chemo // NKDA // Full Code PLAN: - ok to DC off of ABX from ID standpoint - f/u final cultures - monitor CBC, temperatures - monitor BMP - PT Subjective Allergies: Coded Allergies: No Known Allergies (Unverified , 08/16/16) Subjective remains afebrile. c/o weakness DC planning ongoing Objective Vital Signs Last 24 Hour Vital Signs Date Time Temp Pulse Resp B/P Pulse Ox O2 Delivery O2 Flow Rate FiO2 08/23/16 08:00 96.8 68 20 121/87 100 Room Air 08/23/16 04:00 96.4 61 20 105/74 100 Room Air 08/23/16 00:00 97.0 59 20 106/69 99 Room Air 08/22/16 20:16 70 18 Room Air 21 08/22/16 20:00 97.7 55 18 126/76 99 Room Air Height (Feet): 6 Height (Inches): 1.00 Weight (Pounds): 219 General Appearance: no acute distress Respiratory/Chest: no respiratory distress Cardiovascular: normal rate, regular rhythm Abdomen: normal bowel sounds, soft, non tender, non distended Laboratory Tests Test 08/23/16 04:30 White Blood Count 8.2 K/UL (4.8-10.8) Red Blood Count 2.68 M/UL (4.70-6.10) L Hemoglobin 8.6 G/DL (14.2-18.0) L Hematocrit 26.4 % (42.0-52.0) L Mean Corpuscular Volume 99 FL (80-99) Mean Corpuscular Hemoglobin 32.2 PG (27.0-31.0) H Mean Corpuscular Hemoglobin Concent 32.7 G/DL (32.0-36.0) Red Cell Distribution Width 14.6 % (11.6-14.8) Platelet Count 128 K/UL (150-450) L Mean Platelet Volume 7.8 FL (6.5-10.1) Neutrophils (%) (Auto) 68.3 % (45.0-75.0) Lymphocytes (%) (Auto) 23.8 % (20.0-45.0) Monocytes (%) (Auto) 5.1 % (1.0-10.0) Eosinophils (%) (Auto) 2.5 % (0.0-3.0) Basophils (%) (Auto) 0.4 % (0.0-2.0) Sodium Level 144 mEQ/L (135-145) Potassium Level 3.8 mEQ/L (3.4-4.9) Chloride Level 107 mEQ/L (98-107) Carbon Dioxide Level 20 mEQ/L (20-30) Anion Gap 17 (5-15) H Blood Urea Nitrogen 11 mg/dL (7-23) Creatinine 1.7 mg/dL (0.7-1.2) H Estimat Glomerular Filtration Rate 41.3 mL/min (>60) Glucose Level 90 mg/dL (74-106) Uric Acid 3.0 mg/dL (3.0-7.5) Calcium Level 8.2 mg/dL (8.6-10.2) L Phosphorus Level 2.8 mg/dL (2.5-4.8) Magnesium Level 1.5 mg/dL (1.7-2.5) L Total Bilirubin 0.3 mg/dL (0.0-1.2) Aspartate Amino Transf (AST/SGOT) 11 U/L (5-40) Alanine Aminotransferase (ALT/SGPT) 5 U/L (3-41) Alkaline Phosphatase 166 U/L (40-129) H C-Reactive Protein, Quantitative 2.2 mg/dL (< 0.5) H Pro-B-Type Natriuretic Peptide 3040 pg/mL (0-125) H Total Protein 5.8 g/dL (6.6-8.7) L Albumin 3.1 g/dL (3.5-5.2) L Globulin 2.7 g/dL Albumin/Globulin Ratio 1.1 (1.0-2.7) Current Medications Medications (Trade) Dose Ordered Sig/Yenny Route PRN Reason Start Time Stop Time Status Last Admin Dose Admin Acetaminophen (Tylenol) 650 mg Q4H PRN ORAL T>100.5 3/20/17 18:30 09/18/16 18:29 Acetaminophen/ Hydrocodone Bitart ([place] 5/325) 1 tab Q4H PRN ORAL Moderate Pain (Pain Scale 4-6) 08/21/16 13:00 08/28/16 12:59 08/23/16 00:20 Albuterol/ Ipratropium (DuoNeb 0.5-3(2.5)mg/3ml) 3 ml Q4H PRN HHN Shortness of Breath 08/19/16 19:00 08/24/16 18:59 Dextrose (Dextrose 50%) STAT PRN IV Hypoglycemia 08/20/16 14:30 09/19/16 14:29 Dextrose/Sodium Chloride (D5ns) 1,000 ml @ 100 mls/hr Q10H IV 08/19/16 18:00 09/18/16 17:59 08/23/16 02:00 Dronabinol (Marinol) 2.5 mg TID ORAL 08/21/16 13:00 09/20/16 12:59 08/23/16 09:38 Heparin Sodium (Porcine) (Heparin 5000 units/ml) 5,000 units EVERY 12 HOURS SUBQ 08/19/16 21:00 09/18/16 20:59 08/22/16 20:20 Lorazepam (Ativan) 0.5 mg TIDPRN PRN ORAL For Anxiety 08/21/16 17:45 08/28/16 17:44 Midodrine (Pro-Amatine) 10 mg THREE TIMES A DAY ORAL 08/19/16 19:30 09/18/16 19:29 08/23/16 09:38 Morphine Sulfate (Morphine Sulfate) 4 mg EVERY 3 HOURS PRN IVP Severe Pain (Pain Scale 7-10) 08/21/16 18:00 08/28/16 17:59 08/23/16 09:46 Nitroglycerin (Ntg) 0.4 mg Q5M PRN SL Prn Chest Pain 08/19/16 17:45 09/18/16 17:44 Ondansetron HCl (Zofran) 4 mg Q6H PRN IVP Nausea & Vomiting 08/19/16 19:00 09/18/16 18:59 08/23/16 09:46 Polyethylene Glycol (Miralax) 17 gm DAILYPRN PRN ORAL Constipation 08/19/16 19:00 09/18/16 18:59 Tamsulosin HCl (Flomax) 0.4 mg BEDTIME ORAL 08/21/16 21:00 09/20/16 20:59 08/22/16 20:17 SIMONA GUPTA 24, 2017 09:57
--- NOTE | 2016-08-23 11:59 | General Progress Note ---
Assessment/Plan Status: stable Status Narrative Cr lowering Assessment/Plan status: Acute Renal Failure ( Zestril , HCTZ , ? Obstruction.....Hypotension h/o Prostate Ca with bone mets Hypotension Plan: will lower midodrine dose IV fluid- diaz out Monitor renal parameters avoid nephrotoxics kidney GIACOMO- Right kidney measures 11.2 cm in length. Left kidney measures 9.5 cm in length. Both kidneys demonstrate normal echogenicity. No hydronephrosis. No focal abnormality. Normal inferior vena cava. Bladder is empty, contains a Diaz catheter. per orders Subjective ROS Limited/Unobtainable: No Constitutional: Reports: malaise Allergies: Coded Allergies: No Known Allergies (Unverified , 08/16/16) Objective Last 24 Hour Vital Signs Date Time Temp Pulse Resp B/P Pulse Ox O2 Delivery O2 Flow Rate FiO2 08/23/16 08:00 96.8 68 20 121/87 100 Room Air 08/23/16 07:30 68 18 Room Air 21 08/23/16 04:00 96.4 61 20 105/74 100 Room Air 08/23/16 00:00 97.0 59 20 106/69 99 Room Air 08/22/16 20:16 70 18 Room Air 21 08/22/16 20:00 97.7 55 18 126/76 99 Room Air Intake and Output 08/22/16 08/23/16 19:00 07:00 Intake Total 1080 ml 1840 ml Output Total 300 ml 900 ml Balance 780 ml 940 ml Intake Oral 480 ml 740 ml IV Total 600 ml 1100 ml Output Urine Total 300 ml 900 ml Laboratory Tests 08/23/16 04:30: White Blood Count 8.2, Red Blood Count 2.68L, Hemoglobin 8.6L, Hematocrit 26.4L , Mean Corpuscular Volume 99, Mean Corpuscular Hemoglobin 32.2H, Mean Corpuscular Hemoglobin Concent 32.7, Red Cell Distribution Width 14.6, Platelet Count 128L, Mean Platelet Volume 7.8, Neutrophils (%) (Auto) 68.3, Lymphocytes ( %) (Auto) 23.8, Monocytes (%) (Auto) 5.1, Eosinophils (%) (Auto) 2.5, Basophils (%) (Auto) 0.4, Sodium Level 144, Potassium Level 3.8, Chloride Level 107, Carbon Dioxide Level 20, Anion Gap 17H, Blood Urea Nitrogen 11, Creatinine 1.7H , Estimat Glomerular Filtration Rate 41.3, Glucose Level 90, Uric Acid 3.0, Calcium Level 8.2L, Phosphorus Level 2.8, Magnesium Level 1.5L, Total Bilirubin 0.3, Aspartate Amino Transf (AST/SGOT) 11, Alanine Aminotransferase (ALT/SGPT) 5 , Alkaline Phosphatase 166H, C-Reactive Protein, Quantitative 2.2H, Pro-B-Type Natriuretic Peptide 3040H, Total Protein 5.8L, Albumin 3.1L, Globulin 2.7, Albumin/Globulin Ratio 1.1 Height (Feet): 6 Height (Inches): 1.00 Weight (Pounds): 219 General Appearance: no apparent distress Cardiovascular: normal rate Abdomen: soft Objective other PE not changed YRIS VALDEZ Aug 23, 2016 11:59
[2016-08-23 12:00] VITALS: BP 133/85
[2016-08-23 16:00] VITALS: BP 121/74
[2016-08-23 20:00] VITALS: BP_SYST 105; BP_SYST 155; BP_DIAS 66; BP_DIAS 89
[2016-08-23] MEDS: Tamsulosin 0.4mg cap ORAL SCH (21:54)
--- NOTE | 2016-08-23 22:47 | Pulmonology Progress Note ---
Assessment/Plan Problems: (1) Shock (2) COPD (chronic obstructive pulmonary disease) (3) History of CVA (cerebrovascular accident) (4) ATN (acute tubular necrosis) (5) Prostate cancer metastatic to bone (6) GERD (gastroesophageal reflux disease) Assessment/Plan still c/o of lots of pian doing better still feeling week wants to go to [facility] for short term continue IV fluids check electrolytes monitor wbc off abx increase dose of narcotics Subjective ROS Limited/Unobtainable: Yes Constitutional: Reports: anorexia, chills, fatigue, fever Respiratory: Reports: dyspnea at rest, productive cough, shortness of breath, sputum Neurologic: Reports: confusion, weakness Allergies: Coded Allergies: No Known Allergies (Unverified , 08/16/16) Objective Last 24 Hour Vital Signs Date Time Temp Pulse Resp B/P Pulse Ox O2 Delivery O2 Flow Rate FiO2 08/23/16 20:00 98.1 84 20 105/66 100 Room Air 08/23/16 16:00 97.9 65 20 121/74 98 Room Air 08/23/16 12:00 98.1 66 19 133/85 99 Room Air 08/23/16 08:00 96.8 68 20 121/87 100 Room Air 08/23/16 07:30 68 18 Room Air 21 08/23/16 04:00 96.4 61 20 105/74 100 Room Air 08/23/16 00:00 97.0 59 20 106/69 99 Room Air Intake and Output 08/22/16 08/23/16 19:00 07:00 Intake Total 1080 ml 1840 ml Output Total 300 ml 900 ml Balance 780 ml 940 ml Intake Oral 480 ml 740 ml IV Total 600 ml 1100 ml Output Urine Total 300 ml 900 ml General Appearance: no acute distress HEENT: normocephalic, atraumatic, PERRL Respiratory/Chest: chest wall non-tender, decreased breath sounds, accessory muscle use, crackles/rales, rhonchi Cardiovascular: normal peripheral pulses, normal rate, regular rhythm, regularly irregular, no JVD Abdomen: normal bowel sounds, soft, non tender, no organomegaly Genitourinary: normal external genitalia Extremities: no cyanosis Skin: rash, lesions Neurologic/Psychiatric: unresponsiveness Laboratory Tests 08/23/16 04:30: White Blood Count 8.2, Red Blood Count 2.68L, Hemoglobin 8.6L, Hematocrit 26.4L , Mean Corpuscular Volume 99, Mean Corpuscular Hemoglobin 32.2H, Mean Corpuscular Hemoglobin Concent 32.7, Red Cell Distribution Width 14.6, Platelet Count 128L, Mean Platelet Volume 7.8, Neutrophils (%) (Auto) 68.3, Lymphocytes ( %) (Auto) 23.8, Monocytes (%) (Auto) 5.1, Eosinophils (%) (Auto) 2.5, Basophils (%) (Auto) 0.4, Sodium Level 144, Potassium Level 3.8, Chloride Level 107, Carbon Dioxide Level 20, Anion Gap 17H, Blood Urea Nitrogen 11, Creatinine 1.7H , Estimat Glomerular Filtration Rate 41.3, Glucose Level 90, Uric Acid 3.0, Calcium Level 8.2L, Phosphorus Level 2.8, Magnesium Level 1.5L, Total Bilirubin 0.3, Aspartate Amino Transf (AST/SGOT) 11, Alanine Aminotransferase (ALT/SGPT) 5 , Alkaline Phosphatase 166H, C-Reactive Protein, Quantitative 2.2H, Pro-B-Type Natriuretic Peptide 3040H, Total Protein 5.8L, Albumin 3.1L, Globulin 2.7, Albumin/Globulin Ratio 1.1 Current Medications Medications (Trade) Dose Ordered Sig/Yenny Route PRN Reason Start Time Stop Time Status Last Admin Dose Admin Acetaminophen (Tylenol) 650 mg Q4H PRN ORAL T>100.5 08/19/16 18:30 09/18/16 18:29 Acetaminophen/ Hydrocodone Bitart (Macon 5/325) 1 tab Q4H PRN ORAL Moderate Pain (Pain Scale 4-6) 08/21/16 13:00 08/28/16 12:59 08/23/16 19:55 Albuterol/ Ipratropium (DuoNeb 0.5-3(2.5)mg/3ml) 3 ml Q4H PRN HHN Shortness of Breath 08/19/16 19:00 08/24/16 18:59 Dextrose (Dextrose 50%) STAT PRN IV Hypoglycemia 08/20/16 14:30 09/19/16 14:29 Dextrose/Sodium Chloride (D5ns) 1,000 ml @ 100 mls/hr Q10H IV 08/19/16 18:00 09/18/16 17:59 08/23/16 21:57 Dronabinol (Marinol) 2.5 mg TID ORAL 08/21/16 13:00 09/20/16 12:59 08/23/16 19:54 Heparin Sodium (Porcine) (Heparin 5000 units/ml) 5,000 units EVERY 12 HOURS SUBQ 08/19/16 21:00 09/18/16 20:59 08/22/16 20:20 Lorazepam (Ativan) 0.5 mg TIDPRN PRN ORAL For Anxiety 08/21/16 17:45 08/28/16 17:44 08/23/16 21:54 Midodrine (Pro-Amatine) 5 mg THREE TIMES A DAY ORAL 08/23/16 13:00 09/22/16 12:59 08/23/16 19:56 Morphine Sulfate (Morphine Sulfate) 4 mg EVERY 3 HOURS PRN IVP Severe Pain (Pain Scale 7-10) 08/21/16 18:00 08/28/16 17:59 08/23/16 13:38 Nitroglycerin (Ntg) 0.4 mg Q5M PRN SL Prn Chest Pain 08/19/16 17:45 09/18/16 17:44 Ondansetron HCl (Zofran) 4 mg Q6H PRN IVP Nausea & Vomiting 08/19/16 19:00 09/18/16 18:59 08/23/16 09:46 Polyethylene Glycol (Miralax) 17 gm DAILYPRN PRN ORAL Constipation 08/19/16 19:00 09/18/16 18:59 Tamsulosin HCl (Flomax) 0.4 mg BEDTIME ORAL 08/21/16 21:00 09/20/16 20:59 08/23/16 21:54 ZURI NORRIS Aug 23, 2016 22:47
[2016-08-24] VITALS: BP 117/78
[2016-08-24] MEDS: Norco 5mg/325mg tab ORAL PRN (00:35)
[2016-08-24 04:00] VITALS: BP 111/75
[2016-08-24] MEDS: D5NS 1,000 ML IV SCH (08:24)
[2016-08-24] MEDS: Dronabinol 2.5mg Cap ORAL SCH ×2 (08:25→12:55)
[2016-08-24 08:27] VITALS: BP 121/75
[2016-08-24] MEDS: Heparin 5000 units/ml inj SUBQ SCH (08:33)
--- NOTE | 2016-08-24 09:22 | Infectious Diseases Prog Note ---
Assessment/Plan Assessment/Plan ASSESSMENT: 61 y/o male with: // Hypotension SP - off pressors ?iatrogenic r/o septic - Cx(-) - trop(-) x1, UA(-), CXR NAF - TTE: EF 70-75%, grade I diastolic dysfunction, trace valvular disease // Acute mild leukocytosis - resolved, afebrile // Deconditioning // ARF - improved // Metastatic prostate CA, on chemo // NKDA // Full Code PLAN: - ok to DC off of ABX from ID standpoint - f/u final cultures - monitor CBC, temperatures - monitor BMP - PT Subjective Allergies: Coded Allergies: No Known Allergies (Unverified , 08/16/16) Subjective remains afebrile. c/o weakness, pain DC planning ongoing Objective Vital Signs Last 24 Hour Vital Signs Date Time Temp Pulse Resp B/P Pulse Ox O2 Delivery O2 Flow Rate FiO2 08/24/16 08:27 97.5 68 18 121/75 96 Room Air 08/24/16 04:00 97.2 65 20 111/75 97 Room Air 08/24/16 00:00 98.1 64 20 117/78 100 Room Air 08/23/16 20:00 98.1 84 20 105/66 100 Room Air 08/23/16 16:00 97.9 65 20 121/74 98 Room Air 08/23/16 12:00 98.1 66 19 133/85 99 Room Air Height (Feet): 6 Height (Inches): 1.00 Weight (Pounds): 219 General Appearance: no acute distress Respiratory/Chest: no respiratory distress Cardiovascular: normal rate, regular rhythm Abdomen: normal bowel sounds, soft, non tender, non distended Current Medications Medications (Trade) Dose Ordered Sig/Yenny Route PRN Reason Start Time Stop Time Status Last Admin Dose Admin Acetaminophen (Tylenol) 650 mg Q4H PRN ORAL T>100.5 08/19/16 18:30 09/18/16 18:29 Acetaminophen/ Hydrocodone Bitart (Basin 5/325) 1 tab Q4H PRN ORAL Moderate Pain (Pain Scale 4-6) 08/21/16 13:00 08/28/16 12:59 08/24/16 00:35 Albuterol/ Ipratropium (DuoNeb 0.5-3(2.5)mg/3ml) 3 ml Q4H PRN HHN Shortness of Breath 08/19/16 19:00 08/24/16 18:59 Dextrose (Dextrose 50%) STAT PRN IV Hypoglycemia 08/20/16 14:30 09/19/16 14:29 Dextrose/Sodium Chloride (D5ns) 1,000 ml @ 100 mls/hr Q10H IV 08/19/16 18:00 09/18/16 17:59 08/24/16 08:24 Dronabinol (Marinol) 2.5 mg TID ORAL 08/21/16 13:00 09/20/16 12:59 08/24/16 08:25 Heparin Sodium (Porcine) (Heparin 5000 units/ml) 5,000 units EVERY 12 HOURS SUBQ 08/19/16 21:00 09/18/16 20:59 08/24/16 08:33 Lorazepam (Ativan) 0.5 mg TIDPRN PRN ORAL For Anxiety 08/21/16 17:45 08/28/16 17:44 08/23/16 21:54 Midodrine (Pro-Amatine) 5 mg THREE TIMES A DAY ORAL 08/23/16 13:00 09/22/16 12:59 08/24/16 08:25 Morphine Sulfate (Morphine Sulfate) 4 mg EVERY 3 HOURS PRN IVP Severe Pain (Pain Scale 7-10) 08/21/16 18:00 08/28/16 17:59 08/23/16 13:38 Nitroglycerin (Ntg) 0.4 mg Q5M PRN SL Prn Chest Pain 08/19/16 17:45 09/18/16 17:44 Ondansetron HCl (Zofran) 4 mg Q6H PRN IVP Nausea & Vomiting 08/19/16 19:00 09/18/16 18:59 08/23/16 09:46 Polyethylene Glycol (Miralax) 17 gm DAILYPRN PRN ORAL Constipation 08/19/16 19:00 09/18/16 18:59 Tamsulosin HCl (Flomax) 0.4 mg BEDTIME ORAL 08/21/16 21:00 09/20/16 20:59 08/23/16 21:54 SIMONA GUPTA Aug 24, 2016 09:22
[2016-08-24 12:50] VITALS: BP 124/62
--- NOTE | 2016-08-24 12:57 | General Progress Note ---
Assessment/Plan Status: stable Assessment/Plan status: Acute Renal Failure ( Zestril , HCTZ , ? Obstruction.....Hypotension h/o Prostate Ca with bone mets Hypotension Plan: will lower midodrine dose IV fluid- diaz out Monitor renal parameters avoid nephrotoxics kidney GIACOMO- Right kidney measures 11.2 cm in length. Left kidney measures 9.5 cm in length. Both kidneys demonstrate normal echogenicity. No hydronephrosis. No focal abnormality. Normal inferior vena cava. Bladder is empty, contains a Diaz catheter. per orders Subjective ROS Limited/Unobtainable: No Allergies: Coded Allergies: No Known Allergies (Unverified , 08/16/16) Objective Last 24 Hour Vital Signs Date Time Temp Pulse Resp B/P Pulse Ox O2 Delivery O2 Flow Rate FiO2 08/24/16 12:50 97.6 66 18 124/62 97 Room Air 08/24/16 08:27 97.5 68 18 121/75 96 Room Air 08/24/16 04:00 97.2 65 20 111/75 97 Room Air 08/24/16 00:00 98.1 64 20 117/78 100 Room Air 08/23/16 20:00 98.1 84 20 105/66 100 Room Air 08/23/16 16:00 97.9 65 20 121/74 98 Room Air Intake and Output 08/23/16 08/24/16 19:00 07:00 Intake Total 1420 ml 1060 ml Output Total 225 ml 1100 ml Balance 1195 ml -40 ml Intake Oral 720 ml 360 ml IV Total 700 ml 700 ml Output Urine Total 225 ml 1100 ml Height (Feet): 6 Height (Inches): 1.00 Weight (Pounds): 219 General Appearance: no apparent distress Objective other PE not changed YRIS VALDEZ Aug 24, 2016 12:56
[2016-08-24] MEDS ORDERED: D5NS 1000ml IV ONE (14:05)
[2016-08-24 16:00] VITALS: BP 123/78
[2016-08-26] MEDS ORDERED: PRO-AMATINE5 M1 GT (09:07)
--- NOTE | 2016-08-26 09:18 | Discharge Summary ---
Discharge Summary Hospital Course Date of Admission Aug 16, 2016 at 15:00 Date of Discharge Aug 24, 2016 at 17:29 Admitting Diagnosis HYPOTENSION,PROSTATE CA HPI Georgi Ling is a 61 year old male who was admitted on Aug 16, 2016 at 15:00 for Hypotension,Prostate Cancer Hospital Course dc summary #[id number] Discharge Medications New Medications: Midodrine (Midodrine HCl) 5 Mg Tablet 5 MG GT THREE TIMES A DAY, #30 TAB Continued Medications: Hydromorphone Hcl (Hydromorphone Hcl) 2 Mg/1 Ml Vial 2 MG IJ, VIAL Lorazepam* (Lorazepam*) 2 Mg Tablet 2 MG ORAL THREE TIMES A DAY, TAB Omeprazole (Omeprazole) 40 Mg Capsule.dr 40 MG ORAL DAILY, CAP Ondansetron* (Zofran*) 4 Mg Tablet 4 MG ORAL Q6H PRN for Nausea & Vomiting, TAB Prochlorperazine Maleate* (Compazine*) 5 Mg Tablet 10 MG ORAL Q6H, TAB 0 Refills Sertraline Hcl* (Sertraline Hcl*) 25 Mg Tablet 25 MG ORAL DAILY, TAB Zolpidem Tartrate* (Zolpidem Tartrate*) 10 Mg Tablet 10 MG ORAL BEDTIME PRN for Insomnia, TAB 0 Refills Discontinued Medications: Hydrochlorothiazide* (Hydrochlorothiazide*) 25 Mg Tablet 25 MG ORAL DAILY, TAB Discharge Condition Upon Discharge: stable Discharge Disposition Patient was discharged to Home with Home Health(06) Discharge Diagnoses: Marty (Sari)Lisa NP Aug 26, 2016 09:18
--- NOTE | 2016-08-27 00:29 | Discharge Summary 2 SIG ---
DATE OF ADMISSION: 08/16/2016 DATE OF DISCHARGE: 08/24/2016 REASON FOR ADMISSION: 61-year-old male with history of prostate cancer with metastases to the bone ,currently on chemotherapy, was brought in by ambulance after increased dizziness and lightheadedness. The patient had been seen by his oncologist, Dr. Oliver. The patient was noted to have significant hypotension. The patient was not taking blood pressure medication for one day. The patient was given one liter of fluid in Dr. Oliver office prior to arrival. Additional IV fluid provided by paramedics. Hypotension persisted. Emergency room workup revealed acute renal failure with creatinine of 6.3, mild anemia, no leukocytosis, and no fever. Chest x-ray revealed evidence of lytic lesion on the rib. The patient required to be started on pressors and transferred to ICU for further management. ADMITTING DIAGNOSES: 1. Shock. 2. Hypotension. 3. Metastatic prostate cancer with metastasis to bone. 4. Acute renal failure/acute tubular necrosis. 5. Anemia. 6. History of hypertension. 7. Chronic obstructive pulmonary disease. 8. Gastroesophageal reflux disease. 9. Anorexia. HOSPITAL STAY: The patient initially admitted to ICU and started to pressor. The patient was on the IV fluids. Renal parameters and electrolytes were closely monitored. Electronics Engineering Manager followed. The patient subsequently was able to be weaned from pressors. Onyx Chip Terrazzo Worker followed the patient closely. The patient started on midodrine, dose was optimized. Renal parameters were closely monitored. Prior to discharge, creatinine down to 1.7. Electrolytes were closely monitored and replaced as needed. Kidney ultrasound revealed normal echogenicity of bilateral kidneys. No hydronephrosis and empty bladder containing a Guthrie catheter. The etiology of acute tubular necrosis was multifactorial likely secondary to medications such as PIERRE, diuretic as well as dehydration and hypotension as well as possible mechanical obstruction ( prostate cancer), however, mechanical obstruction was ruled out by ultrasound. Supplemental oxygen and pulmonary toilet provided as needed. Echocardiogram revealed preserved ejection fraction of 70% to 75%, and right ventricular systolic pressure of 20 with trace of mitral and tricuspid regurgitation consistent with a trace of valvular disease, normal left ventricular chamber size, hyperdynamic systolic function, and wall motion. Infectious Disease doctor was involved in care of this patient. The patient empirically started on antibiotics for possibility of sepsis. However, blood culture came back negative. Urinalysis negative. Infectious Disease doctor cleared the patient to be off antibiotics. Leukocytosis resolved. The patient was afebrile . Chest x-ray negative . ID doctor recommended to observe the patient off antibiotics. Troponin was negative. Onyx Chip Terrazzo Worker recommended to avoid diuretics and continue IV fluids until discharge. Venous duplex of bilateral upper extremity was negative, Cortisol level was stable. Blood pressure was stable prior to discharge. Continue midodrine , dose adjusted by truck headlight assembler. Renal failure resolved ,most likely secondary to hypotension as well as the medications such as diuretics and PIERRE. Diuretics and PIERRE stopped. AST and ALT within normal limits. Alkaline phosphatase elevated, likely secondary to bone metastasis. Supplemental oxygen and pulmonary toilet provided as needed,. No evidence of COPD exacerbation. Pulse oximetry stable on room air. Hemoglobin and hematocrit were closely monitored, at baseline, DVT and GI prophylaxis provided. Appetite stimulant added to existing regimen. DISCHARGE DIAGNOSES: 1. Shock. 2. Hypotension, requiring pressors. 3. Acute tubular necrosis, likely combination effect of diuretic, PIERRE inhibitor, and hypotension. 4. Metastatic prostate cancer with metastasis to bone. 5. Chronic obstructive pulmonary disease. 6. Acute mild leukocytosis,-resolved. 7. Anemia 8. Gastroesophageal reflux disease. 9. Anorexia. DISCHARGE MEDICATIONS: See medication reconciliation list. DISCHARGE INSTRUCTIONS: The patient discharged home. The patient had a girlfriend who will be helping him at home. Follow up with oncologist as outpatient. Eric Benson M.D. Lisa DanielWadsworth HospitalBhargav NVitaly DR: Cristina JOB#: [id number] CC: JUSTIN
--- NOTE | 2016-09-05 09:20 | Diagnostic Imaging Report ---
Indications: Needs long-term IV access Technique: Procedure performed at bedside. Ultrasound confirms patent compressible right brachial vein. Total sterile technique, including sterile probe cover and sterile gel, sterile gloves, hand hygiene, hat, mask,, sterile gown, large sterile drape, and preparation with 2% chlorhexidine utilized. Local anesthesia with 1% lidocaine. Under real-time ultrasound guidance, puncture right vein using 21-gauge needle, passage 0.018 guidewire, exchange for 5 English peel-away sheath. 5 English Bard dual-lumen power PICC cut to 41 cm. It was inserted through the peel-away sheath. Peel-away sheath and guidewire removed. Catheter fixed to the skin. Both catheter ports aspirated and flushed. Patient tolerated procedure well, without immediate complication. Followup chest x-ray obtained, documents catheter tip position at the cavoatrial junction. Impression: Successful bedside placement of right arm PICC under sonographic guidance, as described above.
--- NOTE | 2016-09-05 09:20 | Diagnostic Imaging Report ---
Indication: Dyspnea Comparison: 08/17/2016 A single view chest radiograph was obtained. Findings: Lungs remain clear. Heart is enlarged but stable. There is a PICC line on the right again noted. Impression: No change from the prior day
== END 2016-08-24 17:29 | disposition home health service (06) | DRG 291 ==
LOC: ENRESERVTM → ENRESERVDT → EDBD 12:40 → EMR 13:25 → EDBEDREQ 14:03 → ICU 15:00 → EDBEDREQ 15:05 → 2E 08-18 17:02 → 3E 08-19 16:32
PROC: 3E033XZ Introduction of Vasopressor into Peripheral Vein, Percutaneous Approach (ICD-10-PCS; principal; 2016-08-16)
DX: R57.9 Shock, unspecified (principal); N17.0 Acute kidney failure with tubular necrosis; C79.51 Secondary malignant neoplasm of bone; C61 Malignant neoplasm of prostate; J44.9 Chronic obstructive pulmonary disease, unspecified; R63.0 Anorexia; I48.0 Paroxysmal atrial fibrillation; D64.9 Anemia, unspecified; E87.6 Hypokalemia; K21.9 Gastro-esophageal reflux disease without esophagitis; E86.0 Dehydration; T50.2X5A Adverse effect of carbonic-anhydrase inhibitors, benzothiadiazides and other diuretics, initial encounter; Y92.019 Unspecified place in single-family (private) house as the place of occurrence of the external cause
CPT/HCPCS: 36415; 36569; 36600; 71010; 76775; 76937; 80048; 80053; 80061; 80076; 81003; 82533; 82550; 82553; 82607; 82803; 82962; 82977; 83036; 83605; 83615; 83735; 83880; 84100; 84443; 84484; 84550; 85025; 85610; 85730; 86140; 86850; 86900; 86901; 87040; 87081; 93005; 93306; 93970; 94664; J2405; J8499